=== PATIENT | male | born 1940 | race Asian ===

== ENCOUNTER 2020-05-16 12:39 | Outpatient (REF) | payer MEDICAID, SELFPAY ==
--- NOTE | 2020-05-16 12:48 | XR_ITS ---
EXAMINATION: XR SHOULDER, LEFT CLINICAL INFORMATION: Left shoulder pain COMPARISON: None TECHNIQUE: AP external rotation, Grashey, scapular Y, and axillary views of the left shoulder. FINDINGS: No fracture or dislocation. The glenohumeral joint is well aligned. The joint space is maintained. The acromioclavicular joint is intact. The visualized ribs are intact. The visualized lung is clear. IMPRESSION: Normal appearance of the left shoulder.
== END 2020-05-16 12:40 | disposition home or self-care (01) ==
LOC: HO.XRAY 12:39
PROVIDERS: PCP Student in an Organized Health Care Education/Training Program; Visit Provider Student in an Organized Health Care Education/Training Program
DX: M25.512 Pain in left shoulder (principal)
CPT/HCPCS: 73030

== ENCOUNTER → 2020-08-09 15:14 | Outpatient (BNVA) | payer MEDICAID, SELFPAY | PROVIDERS: PCP Student in an Organized Health Care Education/Training Program; Referring Provider Student in an Organized Health Care Education/Training Program; Visit Provider Student in an Organized Health Care Education/Training Program | DX: Z76.89 Persons encountering health services in other specified circumstances (principal) ==

== ENCOUNTER → 2020-08-28 09:09 | Outpatient (BNVA) | payer MEDICAID, SELFPAY | PROVIDERS: PCP Student in an Organized Health Care Education/Training Program; Visit Provider Internal Medicine | DX: Z76.89 Persons encountering health services in other specified circumstances (principal) ==

== ENCOUNTER → 2020-08-30 07:45 | Outpatient (REF) | payer MEDICAID, SELFPAY ==
--- NOTE | 2020-08-30 07:49 | CA_ITS ---
Transthoracic Echocardiogram Patient (Last, First, Middle): Carina Mcnulty, Gender: Male Date of : 1940 Age: 80 Procedure Date: 08/30/2020 Procedure Type: Transthoracic Echocardiogram Location: OP Height: 170.18 cm Weight: 89.81 kg BSA: 2.01 m2 Heart Rate: bpm BP: 140 / 60 mmHg Principle Software Engineer: [email or web address] Referring MD: Musa Araujo MD Symptoms: I35.1 - Nonrheumatic aortic (valve) insufficiency Conclusions: - Normal left ventricular size and systolic function. - Abnormal diastolic function is noted. - E/E prime ratio is between 8 and 15 consistent with indeterminate filling pressures. - Normal right ventricular cavity size and systolic function. - There is moderate aortic valve regurgitation. Findings Left Ventricle Normal left ventricular size and systolic function. There is mildly increased left ventricular wall thickness. The visually estimated ejection fraction is between 55-60%. There is no evidence of regional wall motion abnormalities. Abnormal diastolic function is noted. Spectral Doppler is indicative of an impaired relaxation filling pattern. E/E prime ratio is between 8 and 15 consistent with indeterminate filling pressures. Right Ventricle Normal right ventricular cavity size and systolic function. Atria Both atria are normal in size. Aortic Valve There is mild calcification of the aortic valve. There is mild thickening of the aortic valve. There is no aortic valve stenosis. There is moderate aortic valve regurgitation. Mitral Valve Normal mitral valve structure and function. There is mild mitral valve regurgitation. There is no mitral valve stenosis. Pulmonic Valve Normal pulmonic valve structure and function. Tricuspid Valve Normal tricuspid valve structure and function. There is trace tricuspid valve regurgitation. Indeterminate right atrial pressure. PASP = 23 mm Hg + right atrial pressure. Great Vessels All visible segments of the aorta are normal in size. The visualized portions of the pulmonary artery and branches are normal. Venous The inferior vena cava was not well visualized. Pericardium/Pleural There is no evidence of pericardial effusion. Prior Study Comparison Changes noted compared to prior study dated: 10/03/2019. LV size is larger compared to previous study but still within normal limits. Moderate AI present. Measurements M-Mode Liner Measurements Normals - Women/Men LVIDd: 4.94 3.9-5.3/4.2-5.9 cm LVIDd Index: 2.46 1.9-3.2 cm/m2 LVIDs: 3.57 2.0-3.8 cm M-Mode Volumes LV EDV: 115.00 LV ESV: 53.30 2D Linear Measurements IVSd: 1.14 0.6-0.9/0.6-1.0 cm LVIDd: 5.90 3.9-5.3/4.2-5.9 cm LVIDd Index: 2.94 2.4-3.2/2.2-3.1 cm/m2 LVIDs: 4.17 2.0-3.6 cm LVPWd: 1.24 0.7-1.1 cm Ao Root: 3.10 2.1-3.5 cm LA Diam: 3.90 2.7-3.8/3.0-4.0 cm LAIDs Index: 1.94 1.5-2.3 cm/m2 LV Mass: 376.78 67-162/88-224 g LV Mass Index: 187.45 43-95/49-115 g/m2 LVOT Diam: 2.00 3.0+(-)1.3 cm 2D Systolic Function EF 4C: 58.00 >55% M-Mode Systolic Function FS: 27.70 27-47/25-43% LVEF: 53.70 >55% Mitral Valve MV Pk E: 0.74 MV PK A: 1.08 MV Decel Time: 211.00 E/A: 0.70 E'Lateral: 10.10 E'Medial: 5.71 E/E' Med: 13.00 E/E' Lat: 7.30 PHT: 62.00 MVA PHT: 3.55 Decel [place]: 3.51 Aortic Valve AoV Pk Abiodun: 2.04 AoV Pk Grad: 17.00 AI Pk Abiodun: 3.60 AI [place]: 2.40 LVOT LVOT Pk Abiodun: 1.34 LVOT Mn Abiodun: 0.92 LVOT VTI: 0.35 LVOT Pk Grad: 7.00 LVOT Mn Grad: 4.00 LVOT Diam: 2.00 LVOT Area: 3.14 Diastolic Function MV Pk E: 0.74 MV Pk A: 1.08 E/A: 0.70 E'Medial: 5.71 E/E' Med: 13.00 E' Laterial: 10.10 E/E' Lat: 7.30 Tricuspid Valve TR Pk Abioudn: 2.37 TR Pk Grad: 22.00 RA Press: 3.00 RVSP: 23.00 Great Vessels Aorta Ao Root-2D: 3.10 2.0-3.7 cm Ao Asc: 3.40 2.1-3.4 cm Updated in Other Vendor System with Status of Final Mohinder Bernal MD electronically signed on 08/31/2020 12:45:29 PM with status of Final
== END ==
LOC: HO.CARD 07:45
PROVIDERS: Visit Provider Internal Medicine
DX: I35.1 Nonrheumatic aortic (valve) insufficiency (principal)
CPT/HCPCS: 93005; 93306; 99212

== ENCOUNTER → 2020-11-13 14:27 | Outpatient (BNVA) | payer MEDICAID, SELFPAY | PROVIDERS: PCP Student in an Organized Health Care Education/Training Program; Visit Provider Urology | DX: N40.1 Benign prostatic hyperplasia with lower urinary tract symptoms (principal); N13.8 Other obstructive and reflux uropathy; R39.15 Urgency of urination; N35.919 Unspecified urethral stricture, male, unspecified site | CPT/HCPCS: 99212 ==

== ENCOUNTER → 2021-05-16 14:51 | Outpatient (BNVA) | payer MEDICAID, SELFPAY | PROVIDERS: PCP Student in an Organized Health Care Education/Training Program; Visit Provider Urology | DX: N40.1 Benign prostatic hyperplasia with lower urinary tract symptoms (principal); N13.8 Other obstructive and reflux uropathy | CPT/HCPCS: 51798; 99212 ==

== ENCOUNTER → 2021-06-20 14:01 | Outpatient (BNVA) | payer MEDICAID, SELFPAY | PROVIDERS: Visit Provider Urology | DX: N35.919 Unspecified urethral stricture, male, unspecified site (principal); N40.1 Benign prostatic hyperplasia with lower urinary tract symptoms; R97.20 Elevated prostate specific antigen [PSA]; R39.12 Poor urinary stream; N31.8 Other neuromuscular dysfunction of bladder; R39.15 Urgency of urination | CPT/HCPCS: 52000; 99212 ==

== ENCOUNTER 2021-07-18 11:14 | Outpatient (REF) | payer MEDICAID, SELFPAY ==
--- NOTE | 2021-07-18 11:33 | ECG_ITS ---
Test Reason : PREOP Blood Pressure : / mmHG Vent. Rate : 060 BPM Atrial Rate : 060 BPM P-R Int : 204 ms QRS Dur : 096 ms QT Int : 400 ms P-R-T Axes : 009 -07 057 degrees QTc Int : 400 ms Normal sinus rhythm Nonspecific T wave abnormality Abnormal ECG When compared with ECG of 22-NOV-2016 20:25, Vent. rate has decreased BY 38 BPM Nonspecific T wave abnormality has replaced inverted T waves in Inferior leads QT has shortened Referred By: Claire Sellers Electronically Signed By:CORBY SINCLAIR MD
[2021-07-25 15:00] LABS: Levetiracetam Keppra 11.4 mcg/mL (12.0-46.0)
== END 2021-07-18 11:15 | disposition home or self-care (01) ==
LOC: HO.LAB 11:14
PROVIDERS: Absent Provider Student in an Organized Health Care Education/Training Program; PCP Student in an Organized Health Care Education/Training Program; Visit Provider Family Medicine
DX: Z01.818 Encounter for other preprocedural examination (principal)
CPT/HCPCS: 36415; 80177; 93005

== ENCOUNTER 2021-09-27 10:31 | Outpatient (REF) | payer MEDICAID, SELFPAY ==
[2021-09-27 13:12] LABS: PSA,Total (Free>4and<10) 3.47 ng/mL (0.00-4.00)
== END 2021-09-27 10:32 | disposition home or self-care (01) ==
LOC: HO.LAB 10:31
PROVIDERS: PCP Student in an Organized Health Care Education/Training Program; Visit Provider Urology
DX: Z12.5 Encounter for screening for malignant neoplasm of prostate (principal); N13.8 Other obstructive and reflux uropathy; N40.1 Benign prostatic hyperplasia with lower urinary tract symptoms
CPT/HCPCS: 36415; 84153

== ENCOUNTER → 2021-10-14 14:27 | Outpatient (BNVA) | payer MEDICAID, SELFPAY | PROVIDERS: PCP Student in an Organized Health Care Education/Training Program; Visit Provider Internal Medicine | DX: I25.10 Atherosclerotic heart disease of native coronary artery without angina pectoris (principal); I35.1 Nonrheumatic aortic (valve) insufficiency; I10 Essential (primary) hypertension; Z86.73 Personal history of transient ischemic attack (TIA), and cerebral infarction without residual deficits | CPT/HCPCS: 93005; 99212 ==

== ENCOUNTER → 2021-10-23 09:51 | Outpatient (BNVA) | payer MEDICAID, SELFPAY | PROVIDERS: PCP Student in an Organized Health Care Education/Training Program; Visit Provider Urology | DX: N40.1 Benign prostatic hyperplasia with lower urinary tract symptoms (principal); R97.20 Elevated prostate specific antigen [PSA]; N35.919 Unspecified urethral stricture, male, unspecified site; N13.8 Other obstructive and reflux uropathy; R33.8 Other retention of urine | CPT/HCPCS: Q3014 ==

== ENCOUNTER 2022-04-21 10:32 | Outpatient (REF) | payer MEDICAID, SELFPAY ==
[2022-04-21 13:18] LABS: PSA,Total (Free>4and<10) 2.95 ng/mL (0.00-4.00)
== END 2022-04-21 10:33 | disposition home or self-care (01) ==
LOC: HO.LAB 10:32
PROVIDERS: PCP Student in an Organized Health Care Education/Training Program; Visit Provider Urology
DX: Z12.5 Encounter for screening for malignant neoplasm of prostate (principal); N13.8 Other obstructive and reflux uropathy; N40.1 Benign prostatic hyperplasia with lower urinary tract symptoms
CPT/HCPCS: 36415; 84153

== ENCOUNTER → 2022-04-28 09:30 | Outpatient (BNVA) | payer MEDICAID, SELFPAY | PROVIDERS: PCP Student in an Organized Health Care Education/Training Program; Visit Provider Urology | DX: R97.20 Elevated prostate specific antigen [PSA] (principal); N40.1 Benign prostatic hyperplasia with lower urinary tract symptoms; N13.8 Other obstructive and reflux uropathy; R33.8 Other retention of urine; N35.919 Unspecified urethral stricture, male, unspecified site | CPT/HCPCS: 51798; 99212 ==

== ENCOUNTER 2022-05-07 13:16 | Outpatient (REF) | payer MEDICAID, SELFPAY ==
[2022-05-07 14:36] LABS: Basophils Absolute Auto 0.1 X10*3/uL (0.0-0.2); Basophils Percent Auto 1.2 % (0-2); Eosinophils Absolute Auto 1.7 X10*3/uL (0.0-0.4); Eosinophils Percent Auto 21.2 % (0-4); Hematocrit 39.5 % (42.0-52.0); Hemoglobin 13.8 g/dl (14.0-18.0); Imm Gran Abs Auto 0.02 X10*3/uL (0.00-0.03); Imm Gran Pct Auto 0.2 % (0.0-0.4); Lymphocytes Absolute Auto 2.7 X10*3/uL (1.2-4.9); Lymphocytes Percent Auto 33.8 % (20-40); MANUAL DIFF FLAG SCAN; Mean Corpuscular HGB Conc 34.9 g/dl (31.0-36.0); Mean Corpuscular Hemoglobin 32.9 pg (27.0-33.0); Mean Corpuscular Volume 94.3 fL (80.0-98.0); Mean Platelet Volume 10.9 fL (9.4-12.4); Monocytes Absolute Auto 0.6 X10*3/uL (0.1-1.2); Monocytes Percent Auto 7.4 % (2-11); Neutrophils Absolute Auto 2.9 x10*3/uL (2.0-8.3); Neutrophils Percent Auto 36.2 % (45-73); Platelet Count 188 X10*3/uL (160-400); Red Blood Count 4.19 X10*6/uL (4.60-5.80); SCAN SMEAR FLAG 1
[2022-05-07 14:58] LABS: SLIDE REVIEW VERIFIED
[2022-05-07 15:09] LABS: Alanine Aminotransferase 21 U/L (0-40); Albumin Level 4.1 g/dL (3.5-5.0); Alkaline Phosphatase 108 U/L (39-117); Anion Gap 14 (12-20); Aspartate Amino Transferase 19 U/L (5-37); Bilirubin Total 1.2 mg/dL (0.0-1.0); Blood Urea Nitrogen 13 mg/dL (9-16); Calcium 8.8 mg/dL (8.4-10.2); Carbon Dioxide 25 mmol/L (22-29); Chloride 107 mmol/L (96-108); Estimated Glomerular Filt Rate > 60; Glucose Random 94 mg/dL (60-115); Potassium 4.3 mmol/L (3.3-5.1); Sodium 142 mmol/L (135-145); Total Protein 6.2 g/dL (6.5-8.0); Uric Acid 5.9 mg/dL (3.4-7.0)
== END 2022-05-07 13:17 | disposition home or self-care (01) ==
LOC: HO.LAB 13:16
PROVIDERS: PCP Student in an Organized Health Care Education/Training Program; Visit Provider Student in an Organized Health Care Education/Training Program
DX: M10.9 Gout, unspecified (principal)
CPT/HCPCS: 36415; 80053; 84550; 85025; 99212

== ENCOUNTER → 2022-10-01 13:55 | Outpatient (REF) | payer MEDICARE, MEDICAID, SELFPAY ==
--- NOTE | 2022-10-01 13:57 | CA_ITS ---
Transthoracic Echocardiogram Patient (Last, First, Middle): Carina Mcnulty, Gender: Male Date of : 1940 Age: 82 Procedure Date: 10/01/2022 Procedure Type: Transthoracic Echocardiogram Location: OP Height: 165.1 cm Weight: 99.79 kg BSA: 2.06 m2 Heart Rate: bpm BP: 136 / 72 mmHg Management Advisor: ROBERT Referring MD: Musa Araujo MD Concrete Gun Operator: Db Messina MD Symptoms: I35.1 - Nonrheumatic aortic (valve) insufficiency Study Quality: Fair ECG Rhythm: Atrial Fibrillation Conclusions: - 1. Normal LV systolic function 2. Mildly dilated left atrium 3. Mild aortic regurgitation 4. Normal RV systolic pressure 5. Mildly dilated ascending aorta at 3.9 cm 6. Small pericardial effusion Findings Left Ventricle Normal left ventricular size, thickness, and systolic function. The visually estimated ejection fraction is between 55-60%. Diastolic function is indeterminate on the basis of available data. Right Ventricle Normal right ventricular cavity size. There is mild to moderately decreased right ventricular systolic function. Atria The left atrium is mildly dilated. Interatrial shunt cannot be excluded. The right atrium was not well visualized. Aortic Valve The aortic valve was not well visualized. There is a normal trileaflet aortic valve. There is mild calcification of the aortic valve. There is no aortic valve stenosis. There is mild aortic valve regurgitation. Mitral Valve There is mild anterior and posterior mitral leaflet thickening. There is trace mitral valve regurgitation. There is no mitral valve stenosis. Pulmonic Valve The pulmonic valve was not well visualized. Tricuspid Valve Likely normal tricuspid valve structure and function. There is mild tricuspid valve regurgitation. The right ventricular systolic pressure is normal. The right ventricular systolic pressure is 24 mmHg. Normal right atrial pressure. There is no evidence of pulmonary hypertension. Great Vessels The pulmonary artery was not well visualized. There is mild dilatation of the ascending aorta. Venous The inferior vena cava is normal in size and collapses greater than 50% with inspiration. Pericardium/Pleural There is a small circumferential pericardial effusion. Prior Study Comparison Changes noted compared to prior study dated: 08/30/2020. Aortic regurgitation appears to be mild on this study Measurements 2D Linear Measurements IVSd: 1.01 0.6-0.9/0.6-1.0 cm LVIDd: 5.61 3.9-5.3/4.2-5.9 cm LVIDd Index: 2.72 2.4-3.2/2.2-3.1 cm/m2 LVIDs: 3.60 2.0-3.6 cm LVPWd: 0.91 0.7-1.1 cm LA Diam: 5.00 2.7-3.8/3.0-4.0 cm LAIDs Index: 2.43 1.5-2.3 cm/m2 LV Mass: 259.71 67-162/88-224 g LV Mass Index: 126.07 43-95/49-115 g/m2 LVOT Diam: 2.40 3.0+(-)1.3 cm 2D Systolic Function EF 4C: 58.20 >55% EF 2C: 46.70 >55% Mitral Valve MV Pk E: 0.98 Aortic Valve AoV Pk Abiodun: 1.82 AoV Mn Abiodun: 1.30 AoV VTI: 0.42 AoV Pk Grad: 13.00 Aov Mn Grad: 8.00 ISIDRO Cont.VTI: 2.66 AI Pk Abiodun: 3.35 AI VTI: 1.64 AI Maverick: 2.41 AI Alias Abiodun: 0.39 AI RV - PISA: 43.00 ERO - PISA: 26.00 LVOT LVOT Pk Abiodun: 1.17 LVOT Mn Abiodun: 0.78 LVOT VTI: 0.25 LVOT Pk Grad: 5.00 LVOT Mn Grad: 3.00 LVOT Diam: 2.40 LVOT Area: 4.52 Diastolic Function MV Pk E: 0.98 Right Ventricle TAPSE (mm): 14.60 TVS' Abiodun: 8.39 Tricuspid Valve TR Pk Abiodun: 2.29 TR Pk Grad: 21.00 RA Press: 3.00 RVSP: 24.00 Great Vessels Aorta Sinus of Valsalva: 3.60 2.0-3.5 cm Ao Asc: 3.90 2.1-3.4 cm Pulmonary Veins Pulm Vein S/D 1.60 Pulmonary Valve PV Pk Abiodun: 0.83 Peak PV Grad: 3.00 Updated in Other Vendor System with Status of Final Db Messina MD electronically signed on 10/02/2022 2:38:47 PM with status of Final
== END ==
LOC: HO.CARD 13:55
PROVIDERS: PCP Family Medicine; Visit Provider Internal Medicine
DX: I35.1 Nonrheumatic aortic (valve) insufficiency (principal)
CPT/HCPCS: 93306

== ENCOUNTER 2022-10-20 15:09 | Outpatient (REF) | payer MEDICAID, SELFPAY ==
[2022-10-20 17:14] LABS: PSA,Total (Free>4and<10) 3.45 ng/mL (0.00-4.00)
== END 2022-10-20 15:10 | disposition home or self-care (01) ==
LOC: HO.LAB 15:09
PROVIDERS: PCP Student in an Organized Health Care Education/Training Program; Visit Provider Urology
DX: R97.20 Elevated prostate specific antigen [PSA] (principal); Z12.5 Encounter for screening for malignant neoplasm of prostate
CPT/HCPCS: 36415; 84153

== ENCOUNTER → 2022-10-27 13:07 | Outpatient (BNVA) | payer MEDICAID, SELFPAY | PROVIDERS: PCP Student in an Organized Health Care Education/Training Program; Visit Provider Urology ==

== ENCOUNTER → 2022-11-05 12:57 | Outpatient (BNVA) | payer MEDICARE, MEDICAID, SELFPAY | PROVIDERS: PCP Student in an Organized Health Care Education/Training Program; Visit Provider Student in an Organized Health Care Education/Training Program | DX: M1A.09X0 Idiopathic chronic gout, multiple sites, without tophus (tophi) (principal) | CPT/HCPCS: 99212 ==

== ENCOUNTER → 2022-12-03 12:30 | Outpatient (BNVA) | payer MEDICARE, MEDICAID, SELFPAY | PROVIDERS: PCP Student in an Organized Health Care Education/Training Program; Referring Provider Student in an Organized Health Care Education/Training Program; Visit Provider Internal Medicine | DX: I48.91 Unspecified atrial fibrillation (principal); I25.10 Atherosclerotic heart disease of native coronary artery without angina pectoris; I35.1 Nonrheumatic aortic (valve) insufficiency; I10 Essential (primary) hypertension | CPT/HCPCS: 93005; 99212 ==

== ENCOUNTER → 2022-12-17 10:10 | Outpatient (REF) | payer MEDICARE, MEDICAID, SELFPAY ==
--- NOTE | 2022-12-17 10:13 | HM_ITS ---
* Total monitoring time 3 days. * Underlying rhythm is atrial fibrillation. Average ventricular rate 66/Min. Range 45 to 101/Min. * No significant pauses. * Rare PVCs. One run of 4 beats. * No patient markers or events in diary. MTDD
== END ==
LOC: HO.CARD 10:10
PROVIDERS: PCP Student in an Organized Health Care Education/Training Program; Visit Provider Internal Medicine
DX: I48.91 Unspecified atrial fibrillation (principal)
CPT/HCPCS: 93242

== ENCOUNTER 2023-04-27 14:55 | Outpatient (AMB) | payer MEDICARE, MEDICAID, SELFPAY ==
--- NOTE | 2023-04-27 15:14 | A.OFFVIS_ITS ---
Intake Intake Visit Reasons: 6m/PVR Intake Note: Patient is Present for Follow Up PVR Urology Medication: Finasteride, Tamsulosin Antibiotic Allergies: None Blood Thinners: Eliquis, Pharmacy: [facility] PVR: Allergies levetiracetam [Keppra] Allergy (Intermediate, Verified 04/27/23 15:20) rash bell [CHERRIES] Allergy (Unknown, Verified 04/27/23 15:20) RASH phenytoin [From DILANTIN] Allergy (Unknown, Verified 04/27/23 15:20) HIVES strawberry [STRAWBERRY] Allergy (Unknown, Verified 04/27/23 15:20) RASH HPI HPI Comments History of Present Illness Details Carina is a pleasant male. He is a patient of Dr. Lyn. He is seen for the following urologic conditions - urethral stricture - lower urinary tract symptoms PVR 0 cc Stable voiding parameters Has stopped using catheter Off oxybutynin 12 month follow-up Lower urinary tract symptoms Nocturia 2-3 Prior history of distal urethral stricture which has been dilated by patient with intermittent self catheterization. TURP 2014 PSA 01/19 11, 09/23 3.5, 04/23 3.0 Cystoscopy 06/22 prior TURP Current medications tamsulosin and finasteride PFSH Medical History Ischemic stroke Essential hypertension Atherosclerotic cardiovascular disease Non-rheumatic aortic regurgitation Gout Surgical History History of total right knee replacement Family History Father No problems noted. Mother No problems noted. Social History Alcohol intake: never Patient Tobacco Use Status: Never used Tobacco Review of Systems Const Denies chills and Denies fever(s) Card Reports no additional complaints and Denies syncope Resp Denies cough GI Denies abdominal pain and Denies heartburn Reports as per HPI and Denies change in libido Neuro Denies syncope Psych Denies change in libido Endo Denies change in libido Physical Exam Const General: cooperative, healthy appearing, comfortable and no acute distress Orientation/consciousness: patient oriented x3 HEENT Face and sinus: Yes normal facial exam Mouth: moist mucous membranes Neck Neck: Yes normal visual inspection, Yes full ROM and Yes trachea midline Chest Chest palpation & inspection: normal inspection of the chest Resp Effort & Inspection: normal respiratory effort, able to speak in complete sentences and no respiratory distress GI Inspection: Yes normal to inspection Back/Spine/Pelvis Cervical Spine: normal cervical lordosis Thoracic/Lumbar Spine: thoracic and lumbar spine normal to inspection Skin General skin exam: no rashes or lesions noted Neuro General: patient oriented x3, gait normal, tone normal and moves all extremities Extrem General: Yes normal to inspection and Yes capillary refill normal Assessment & Plan Assessment & Plan (1) Elevated PSA: Code(s): R97.20 - Elevated prostate specific antigen [PSA] (2) Urinary urgency: Code(s): R39.15 - Urgency of urination (3) BPH w urinary obs/LUTS: Code(s): N40.1 - Benign prostatic hyperplasia with lower urinary tract symptoms; N13.8 - Other obstructive and reflux uropathy Plan Twelve month follow-up Orders: Orders AMB Urinalysis Automated 04/27/23 Z13.9 - Encounter for screening, unspecified AMB Post Void Residual by ultrasound 04/27/23 N13.8 - Other obstructive and ref lux uropathy, N40.1 - Benign prostatic hyperplasia with lower urinary tract symptoms Patient Instructions: Imaging studies, laboratory and physical exam results were discussed and reviewed in detail. No major barriers to patient understanding were identified. An opportunity to ask questions regarding the treatment plan was provided. All questions were answered. The patient expressed understanding and agreement with the above treatment plan. The patient is aware they should contact our office by phone for worsening of their current condition or the appearance of new urologic symptoms. Compliance is encouraged with any medications and followup testing that is ordered. It is a privilege to participate in the urologic care of your patient. If you have any questions or concerns regarding treatment for the above conditions, or other urologic issues, please do not hesitate to contact me. The office telephone contact is [phone]. This note is constructed using voice recognition software. While every effort has been made to ensure accuracy crown perforator operator errors may have been included. Yours sincerely, Dr Stephane Bryan MD, [facility] - Urology Providers of Expert, Compassionate Care for the Genitourinary System Coding Level of Care Code Est Pt Level 3 (02391) Diagnoses Elevated PSA R97.20 Urinary urgency R39.15 BPH w urinary obs/LUTS N40.1; N13.8
== END 2023-04-27 15:47 | disposition home or self-care (01) ==
PROVIDERS: PCP Student in an Organized Health Care Education/Training Program; Visit Provider Urology
DX: R97.20 Elevated prostate specific antigen [PSA] (principal); N40.1 Benign prostatic hyperplasia with lower urinary tract symptoms; R39.15 Urgency of urination; N13.8 Other obstructive and reflux uropathy
CPT/HCPCS: 99213

== ENCOUNTER → 2023-04-27 14:55 | Outpatient (BNVA) | payer MEDICARE, MEDICAID, SELFPAY | PROVIDERS: Visit Provider Urology | DX: N40.1 Benign prostatic hyperplasia with lower urinary tract symptoms (principal); N13.8 Other obstructive and reflux uropathy; R97.20 Elevated prostate specific antigen [PSA]; R39.15 Urgency of urination | CPT/HCPCS: 99212 ==

== ENCOUNTER 2023-05-14 13:01 | Outpatient (AMB) | payer MEDICARE, MEDICAID, SELFPAY ==
--- NOTE | 2023-05-14 13:08 | A.OFFVIS_ITS ---
Intake Vital Signs 05/14/23 13:09 Height 5 ft 7 in Weight 215 lb 9.793 oz BMI 33.8 BP 160/72 H Blood Pressure Location Rt brachial Position Sitting Pulse 75 Pulse Source Pulse Oximeter Temp 97.9 F Temp Source Skin Pulse Oximetry (%) 96 Intake Visit Reasons: Gout Intake Note: Pt presents today for gout follow up. Currently managing with allopurinol 100mg bid. Denies flare up. Small Products Assembler Required: No Accompanied by: Daughter Allergies levetiracetam [Keppra] Allergy (Intermediate, Verified 05/14/23 13:15) rash bell [CHERRIES] Allergy (Unknown, Verified 05/14/23 13:15) RASH phenytoin [From DILANTIN] Allergy (Unknown, Verified 05/14/23 13:15) HIVES strawberry [STRAWBERRY] Allergy (Unknown, Verified 05/14/23 13:15) RASH Medication List - Last Reconciled 05/14/23 by Herbert Keita MD allopurinol 100 mg PO BID amlodipine 10 mg PO DAILY apixaban (Eliquis) 5 mg PO BID 90 days atorvastatin (Lipitor) 40 mg PO DAILY cyanocobalamin (vitamin B-12) 1,000 mcg PO DAILY finasteride 5 mg PO DAILY 90 days levetiracetam 750 mg PO BID loratadine 10 mg PO DAILY metoprolol succinate ER 100 mg PO DAILY tamsulosin (Flomax) 0.4 mg PO DAILY 90 days HPI HPI Comments History of Present Illness Details 83 yoM presents for follow-up of gout. Anamaria lucio is here with his daughter who is his artificial glass eye maker. He is doing well overall with no gout flares since last visit. On allopurinol 100 mg Twice daily [facility] Medical History Ischemic stroke Essential hypertension Atherosclerotic cardiovascular disease Non-rheumatic aortic regurgitation Gout Surgical History History of total right knee replacement Family History Father No problems noted. Mother No problems noted. Social History Alcohol intake: never Patient Tobacco Use Status: Never used Tobacco Review of Systems [facility] Denies arthralgias Physical Exam Vital Signs: Last Vital Signs Temp 97.9 F 05/14/23 13:09 Pulse 75 05/14/23 13:09 BP 160/72 H 05/14/23 13:09 Pulse Ox 96 05/14/23 13:09 BMI result Body Mass Index 33.8 Const General: healthy appearing, comfortable and no acute distress Nutritional Appearance: obese (Obese) Limitations: ambulation with cane HEENT Head: Yes normocephalic and Yes atraumatic Resp Effort & Inspection: normal respiratory effort Skin General skin exam: no rashes or lesions noted Extrem Other: Some osteoarthritic changes of his hands with no synovitis No tophi noted Assessment & Plan Assessment & Plan (1) Gout: Code(s): M10.9 - Gout, unspecified Qualifiers: Gout site: multiple sites Gout etiology: idiopathic Chronicity: chronic Presence of tophus: without tophus Qualified Code(s): M1A.09X0 - Idiopathic chronic gout, multiple sites, without tophus (tophi) Plan: This is an 83-year-old male with gout.? He is on allopurinol 100 mg Twice daily.? His gout is well controlled.? Serum uric acid was 5.9 in 05/23 which is at target Continue allopurinol 100 mg Twice daily.? Check uric acid level. Continue allopurinol 100 mg Twice daily Follow-up in 6 months Plan I spent 18 minutes reviewing patient's chart, evaluating patient, ordering diagnostic workup, counseling patient and documenting in the chart Orders: Orders Basic Metabolic Panel Today M10.9 - Gout, unspecified Uric Acid Today M10.9 - Gout, unspecified Complete Blood Count Auto Diff Today M10.9 - Gout, unspecified Coding Level of Care Code Est Pt Level 3 (69799) Diagnoses Idiopathic chronic gout of multiple sites without tophus M1A.09X0 Gout site: multiple sites Gout etiology: idiopathic Chronicity: chronic Presence of tophus: without tophus
[2023-05-14 13:09] VITALS: BP 160/72; PULSE 75; TEMP 36.6; O2SAT 96; BMI 33.8
== END 2023-05-14 13:32 | disposition home or self-care (01) ==
PROVIDERS: PCP Student in an Organized Health Care Education/Training Program; Referring Provider Student in an Organized Health Care Education/Training Program; Visit Provider Student in an Organized Health Care Education/Training Program
DX: M1A.09X0 Idiopathic chronic gout, multiple sites, without tophus (tophi) (principal)
CPT/HCPCS: 99213

== ENCOUNTER → 2023-05-14 13:01 | Outpatient (BNVA) | payer MEDICARE, MEDICAID, SELFPAY | PROVIDERS: Visit Provider Student in an Organized Health Care Education/Training Program | DX: M1A.09X0 Idiopathic chronic gout, multiple sites, without tophus (tophi) (principal) | CPT/HCPCS: 99212 ==

== ENCOUNTER 2023-11-05 14:23 | Outpatient (REF) | payer MEDICARE, MEDICAID, SELFPAY ==
[2023-11-05 16:29] LABS: MANUAL DIFF FLAG NO
[2023-11-05 16:36] LABS: Basophils Absolute Auto 0.1 X10*3/uL (0.0-0.2); Eosinophils Absolute Auto 1.6 X10*3/uL (0.0-0.4); Eosinophils Percent Auto 19.2 % (0-4); Hematocrit 41.3 % (42.0-52.0); Hemoglobin 14.3 g/dl (14.0-18.0); Imm Gran Abs Auto 0.02 X10*3/uL (0.00-0.03); Imm Gran Pct Auto 0.2 % (0.0-0.4); Lymphocytes Absolute Auto 2.9 X10*3/uL (1.2-4.9); Mean Corpuscular HGB Conc 34.6 g/dl (31.0-36.0); Mean Corpuscular Hemoglobin 33.3 pg (27.0-33.0); Mean Platelet Volume 11.4 fL (9.4-12.4); Monocytes Absolute Auto 0.6 X10*3/uL (0.1-1.2); Neutrophils Absolute Auto 3.1 x10*3/uL (2.0-8.3); Neutrophils Percent Auto 37.6 % (45-73); Platelet Count 205 X10*3/uL (160-400); Red Cell Distribution Width 13.2 % (11.0-16.0); White Blood Count 8.2 X10*3/uL (4.8-10.8)
[2023-11-05 16:49] LABS: Anion Gap 12 (12-20); Blood Urea Nitrogen 16 mg/dL (9-16); Calcium 9.1 mg/dL (8.4-10.2); Carbon Dioxide 26 mmol/L (22-29); Chloride 111 mmol/L (96-108); Estimated Glomerular Filt Rate > 60; Glucose Random 97 mg/dL (60-115); Potassium 4.4 mmol/L (3.3-5.1); Sodium 145 mmol/L (135-145); Uric Acid 5.6 mg/dL (3.4-7.0)
== END 2023-11-05 14:24 | disposition home or self-care (01) ==
LOC: HO.HMGCLDS 14:23
PROVIDERS: PCP Student in an Organized Health Care Education/Training Program; Visit Provider Student in an Organized Health Care Education/Training Program
DX: M10.9 Gout, unspecified (principal)
CPT/HCPCS: 36415; 80048; 84550; 85025

== ENCOUNTER 2023-11-11 14:04 | Outpatient (AMB) | payer MEDICARE, MEDICAID, SELFPAY ==
[2023-11-11 14:06] VITALS: BP 128/60; PULSE 66; O2SAT 97; BMI 33.6
--- NOTE | 2023-11-11 14:06 | MHC.OFFVIS ---
Intake Vital Signs 11/11/23 14:06 Height 5 ft 7 in Weight 214 lb 8.156 oz BMI 33.6 BP 128/60 Blood Pressure Location Rt brachial Position Sitting Pulse 66 Pulse Source Pulse Oximeter Pulse Oximetry (%) 97 Oxygen Delivery Method Room Air Intake Visit Reasons: Gout Intake Note: Patient last seen 05/14/23 presents today for follow up and test results. Telegraph Office Manager Required: Yes Telegraph Office Manager Name: Daughter Sithar - form signed Information Interpreted: non-clinical & clinical Accompanied by: Daughter Allergies bell [CHERRIES] Allergy (Unknown, Verified 11/11/23 14:17) RASH phenytoin [From DILANTIN] Allergy (Unknown, Verified 11/11/23 14:17) HIVES strawberry [STRAWBERRY] Allergy (Unknown, Verified 11/11/23 14:17) RASH Medication List - Last Reconciled 11/11/23 by Herbert Keita MD allopurinol 100 mg PO BID amlodipine 10 mg PO DAILY apixaban (Eliquis) 5 mg PO BID 90 days atorvastatin (Lipitor) 40 mg PO DAILY cyanocobalamin (vitamin B-12) 1,000 mcg PO DAILY finasteride 5 mg PO DAILY 90 days levetiracetam 750 mg PO BID loratadine 10 mg PO DAILY metoprolol succinate ER 100 mg PO DAILY tamsulosin (Flomax) 0.4 mg PO DAILY 90 days HPI HPI Comments History of Present Illness Details 83 yoM presents for follow-up of gout. He is here with his daughter who is his almond pan finisher. He is doing well overall with no gout flares since last visit. On allopurinol 100 mg Twice daily [facility] Medical History Ischemic stroke Essential hypertension Atherosclerotic cardiovascular disease Non-rheumatic aortic regurgitation Gout Surgical History History of total right knee replacement Family History Father No problems noted. Mother No problems noted. Social History Alcohol intake: never Patient Tobacco Use Status: Never used Tobacco Review of Systems [place] Denies arthralgias Physical Exam Vital Signs: Last Vital Signs Pulse 66 11/11/23 14:06 BP 128/60 11/11/23 14:06 Pulse Ox 97 11/11/23 14:06 Oxygen Delivery Method Room Air 11/11/23 14:06 BMI result Body Mass Index 33.6 Const General: healthy appearing, comfortable and no acute distress Nutritional Appearance: obese (Obese) Limitations: ambulation with cane HEENT Head: Yes normocephalic and Yes atraumatic Resp Effort & Inspection: normal respiratory effort Skin General skin exam: no rashes or lesions noted Extrem Other: Some osteoarthritic changes of his hands with no synovitis No tophi noted Assessment & Plan Assessment & Plan (1) Gout: Code(s): M10.9 - Gout, unspecified Qualifiers: Gout site: multiple sites Gout etiology: idiopathic Chronicity: chronic Presence of tophus: without tophus Qualified Code(s): M1A.09X0 - Idiopathic chronic gout, multiple sites, without tophus (tophi) Plan: This is an 83-year-old male with gout.? He is on allopurinol 100 mg Twice daily.? His gout is well controlled.? Serum uric acid 5.7 mg/dL 10/2022 which is at target. Continue allopurinol 100 mg Twice daily. Labs before next visit in 6 months Plan I spent 18 minutes reviewing patient's chart, evaluating patient, ordering diagnostic workup, counseling patient and documenting in the chart Orders: Orders Uric Acid 6 Months M1A.09X0 - Idiopathic chronic gout, multiple sites, without tophus (tophi) Basic Metabolic Panel 6 Months M1A.09X0 - Idiopathic chronic gout, multiple sites, without tophus (tophi) Medications: Refilled allopurinol 100 mg PO BID 180 tabs 2RF Coding Level of Care Code Est Pt Level 3 (19171) Diagnoses Idiopathic chronic gout of multiple sites without tophus M1A.09X0 Gout site: multiple sites Gout etiology: idiopathic Chronicity: chronic Presence of tophus: without tophus
== END 2023-11-11 14:33 | disposition home or self-care (01) ==
PROVIDERS: PCP Student in an Organized Health Care Education/Training Program; Visit Provider Student in an Organized Health Care Education/Training Program
DX: M1A.09X0 Idiopathic chronic gout, multiple sites, without tophus (tophi) (principal)
CPT/HCPCS: 99213

== ENCOUNTER → 2023-11-11 14:04 | Outpatient (BNVA) | payer MEDICARE, MEDICAID, SELFPAY | PROVIDERS: PCP Student in an Organized Health Care Education/Training Program; Visit Provider Student in an Organized Health Care Education/Training Program | DX: M1A.09X0 Idiopathic chronic gout, multiple sites, without tophus (tophi) (principal); Z79.899 Other long term (current) drug therapy | CPT/HCPCS: 99212 ==

== ENCOUNTER 2023-12-09 12:21 | Outpatient (AMB) | payer MEDICARE, MEDICAID, SELFPAY ==
--- NOTE | 2023-12-09 12:29 | MHC.OFFVIS ---
Vital Signs 12/09/23 12:30 Height 5 ft 7 in BMI Reason not done Patient refused/unable BP 140/60 H Blood Pressure Location Lt brachial Position Sitting Pulse 75 Intake Visit Reasons: 1 yr f/up Garment Alteration Examiner Required: Yes Garment Alteration Examiner Name: Sithar/ Daughter Accompanied by: Daughter Allergies bell [CHERRIES] Allergy (Unknown, Verified 11/11/23 14:17) RASH phenytoin [From DILANTIN] Allergy (Unknown, Verified 11/11/23 14:17) HIVES strawberry [STRAWBERRY] Allergy (Unknown, Verified 11/11/23 14:17) RASH Medication List - Last Reconciled 12/09/23 by Musa Araujo MD allopurinol 100 mg PO BID amlodipine 10 mg PO DAILY apixaban (Eliquis) 5 mg PO BID 90 days atorvastatin (Lipitor) 40 mg PO DAILY cyanocobalamin (vitamin B-12) 1,000 mcg PO DAILY finasteride 5 mg PO DAILY 90 days levetiracetam 750 mg PO BID loratadine 10 mg PO DAILY metoprolol succinate ER 100 mg PO DAILY tamsulosin (Flomax) 0.4 mg PO DAILY 90 days HPI Comments Details: Carina returns for follow-up regarding coronary disease. In 2016, had stroke/NSTEMI in setting of elective knee surgery. He comes in a wheelchair accompanied by family. Per family, he does get short of breath with minimal amounts of activity. He also appears to be wheezing a lot. However, no history of any respiratory issues in the past. Not clear if it is just diastolic heart failure. [facility] [place] Medical History Ischemic stroke Essential hypertension Atherosclerotic cardiovascular disease Non-rheumatic aortic regurgitation Gout Surgical History History of total right knee replacement Family History Father No problems noted. Mother No problems noted. Social History Alcohol intake: never Patient Tobacco Use Status: Never used Tobacco Review of Systems Const Denies chills, Denies fatigue, Denies fever(s), Denies frequent falls, Denies weakness, Denies weight gain and Denies weight loss ENT Denies dizziness Card Denies chest pain, Denies leg edema, Denies lightheadedness, Denies palpitations, Denies dyspnea and Denies dyspnea on exertion Resp Denies cough, Denies dyspnea and Denies dyspnea on exertion GI Denies hematochezia Musc Denies abnormal gait, Denies muscle weakness, Denies numbness, Denies radiating pain into limb and Denies tingling Neuro Denies abnormal gait, Denies dizziness, Denies frequent falls, Denies numbness, Denies tingling and Denies weakness Endo Denies fatigue and Denies palpitations Physical Exam Vital Signs: Last Vital Signs Pulse 75 12/09/23 12:30 BP 140/60 H 12/09/23 12:30 Const General: comfortable and no acute distress Orientation/consciousness: patient oriented x3 HEENT Other: Unremarkable Head: Yes normal to inspection Neck Neck: Yes normal visual inspection Chest Chest palpation & inspection: normal inspection of the chest Resp Auscultation: wheezes Cardio Palpation: normal PMI Heart sounds: S1 normal heart sound present, S2 normal heart sound present, no gallops, no murmurs and no rubs GI Palpation (GI): Soft to palpation Back/Spine/Pelvis Other: unremarkable Skin General skin exam: no rashes or lesions noted Neuro General: patient oriented x3 Extrem General: Yes normal to inspection Psych Mental Status: mental status grossly normal Office Procedures EKG Details: EKG with atrial fibrillation at 75/Min; incomplete right bundle-branch block; can not exclude old anterior infarct. [id number], Complete Assessment & Plan Assessment & Plan (1) Atrial fibrillation by electrocardiogram: Code(s): I48.91 - Unspecified atrial fibrillation Category: Medical Plan: Continue beta-blockers and anticoagulation. (2) Atherosclerotic cardiovascular disease: Code(s): I25.10 - Atherosclerotic heart disease of [place] coronary artery without angina pectoris Category: Medical Plan: Presumed coronary disease but no clear-cut angina. Continue beta-blockers, statins. (3) Non-rheumatic aortic regurgitation: Code(s): I35.1 - Nonrheumatic aortic (valve) insufficiency Category: Medical Plan: Mild aortic regurgitation on the echocardiogram. Not clinically significant. (4) Essential hypertension: Code(s): I10 - Essential (primary) hypertension Category: Medical Plan: Stable. No changes. (5) Shortness of breath: Code(s): R06.02 - Shortness of breath Category: Medical Plan: Shortness of breath/wheezing per history. On exam, clearly has wheezing in bilateral lung bardales. Not clear if it is diastolic heart failure versus asthma extra. In the recent chest CT scan from [facility]-heart moderately enlarged. Coronary calcification. Small pericardial effusion. Atelectasis versus scar in the right middle lobe and both lower lobes. Will obtain echo. Try low-dose Lasix. Labs in a few weeks. If not improving, then probably get Pulmonary consult. Orders: Orders CA echo transthoracic complete Today R06.02 - Shortness of breath Basic Metabolic Panel 6 Weeks I10 - Essential (primary) hypertension B Type Natriuretic Peptide 6 Weeks I50.9 - Heart failure, unspecified Medications: New furosemide (Lasix) 20 mg PO DAILY 90 tabs 1RF Coding Level of Care Code Est Pt Level 4 (78041) Diagnoses Atrial fibrillation by electrocardiogram I48.91 Atherosclerotic cardiovascular disease I25.10 Non-rheumatic aortic regurgitation I35.1 Essential hypertension I10 Shortness of breath R06.02 CPT Codes EKG - CPT: 69837-Nqzfneiputspiaeqs, Complete ([id number])
[2023-12-09 12:30] VITALS: BP 140/60; PULSE 75
== END 2023-12-09 12:50 | disposition home or self-care (01) ==
PROVIDERS: Visit Provider Internal Medicine
DX: I48.91 Unspecified atrial fibrillation (principal); I25.10 Atherosclerotic heart disease of native coronary artery without angina pectoris; I35.1 Nonrheumatic aortic (valve) insufficiency; I10 Essential (primary) hypertension; R06.02 Shortness of breath
CPT/HCPCS: 93010; 99214

== ENCOUNTER → 2023-12-09 12:21 | Outpatient (BNVA) | payer MEDICARE, MEDICAID, SELFPAY | PROVIDERS: Visit Provider Internal Medicine | DX: I48.91 Unspecified atrial fibrillation (principal); I25.10 Atherosclerotic heart disease of native coronary artery without angina pectoris; I35.1 Nonrheumatic aortic (valve) insufficiency; I10 Essential (primary) hypertension; R06.02 Shortness of breath | CPT/HCPCS: 93005; 99212 ==

== ENCOUNTER → 2023-12-24 15:05 | Outpatient (REF) | payer MEDICARE, MEDICAID, SELFPAY ==
--- NOTE | 2023-12-24 15:10 | CA_ITS ---
Transthoracic Echocardiogram Patient (Last, First, Middle): Carina Mcnulty, Gender: Male Date of : 1940 Age: 83 Procedure Date: 12/24/2023 Procedure Type: Transthoracic Echocardiogram Location: OP Height: 165.1 cm Weight: 97.52 kg BSA: 2.04 m2 Heart Rate: 74 bpm BP: 138 / 64 mmHg Panel Machine Operator: SB Referring MD: Musa Araujo MD Symptoms: R06.02 - Shortness of breath Study Quality: Adequate ECG Rhythm: Atrial Fibrillation Conclusions: - Normal left ventricular size and systolic function. There is mildly increased left ventricular wall thickness. The visually estimated ejection fraction is between 55-60%. - Normal right ventricular cavity size and systolic function. - There is a small pericardial effusion. - There are no definitive echocardiographic findings of tamponade physiology. Findings Procedure Information The quality of the study was technically difficult. The study quality is limited by patients body habitus. Left Ventricle Normal left ventricular size and systolic function. There is mildly increased left ventricular wall thickness. The visually estimated ejection fraction is between 55-60%. There is no evidence of regional wall motion abnormalities. Diastolic function is indeterminate on the basis of available data. Right Ventricle Normal right ventricular cavity size and systolic function. Atria The left atrium is mildly dilated. Aortic Valve There is mild calcification of the aortic valve. There is no aortic valve stenosis. There is mild aortic valve regurgitation. Mitral Valve The mitral valve appears normal. There is mild mitral valve regurgitation. There is no mitral valve stenosis. Pulmonic Valve The pulmonic valve is likely normal. Tricuspid Valve Normal tricuspid valve structure. There is no tricuspid valve regurgitation. Normal right atrial pressure. There is no evidence of pulmonary hypertension. Great Vessels There is mild dilatation of the ascending aorta measuring 4.20 cm. The visualized portions of the pulmonary artery and branches are normal. Venous The inferior vena cava was not well visualized. Pericardium/Pleural There is a small pericardial effusion. There are no definitive echocardiographic findings of tamponade physiology. Prior Study Comparison Changes noted compared to prior study dated: 10/01/2022. Ascending aorta 4.2 cm. Measurements 2D Linear Measurements IVSd: 1.29 0.6-0.9/0.6-1.0 cm LVIDd: 5.12 3.9-5.3/4.2-5.9 cm LVIDd Index: 2.51 2.4-3.2/2.2-3.1 cm/m2 LVIDs: 3.12 2.0-3.6 cm LVPWd: 1.11 0.7-1.1 cm LA Diam: 4.50 2.7-3.8/3.0-4.0 cm LAIDs Index: 2.21 1.5-2.3 cm/m2 LV Mass: 302.68 67-162/88-224 g LV Mass Index: 148.37 43-95/49-115 g/m2 LVOT Diam: 2.20 3.0+(-)1.3 cm 2D Systolic Function EF 4C: 56.20 >55% EF 2C: 50.40 >55% EF BiP: 54.00 >55% Mitral Valve MV Pk E: 0.90 Aortic Valve AoV Pk Abiodun: 1.80 AoV Mn Abiodun: 1.26 AoV VTI: 0.32 AoV Pk Grad: 13.00 Aov Mn Grad: 8.00 ISIDRO Cont.VTI: 2.43 AI Pk Abiodun: 3.60 AI Kleberg: 2.03 LVOT LVOT Pk Abiodun: 1.13 LVOT Mn Abiodun: 0.76 LVOT VTI: 0.21 LVOT Pk Grad: 5.00 LVOT Mn Grad: 3.00 LVOT Diam: 2.20 LVOT Area: 3.80 Diastolic Function MV Pk E: 0.90 Right Ventricle TAPSE (mm): 10.70 TVS' Abiodun: 7.00 Tricuspid Valve TR Pk Abiodun: 2.19 TR Pk Grad: 19.00 RA Press: 3.00 RVSP: 22.00 Great Vessels Aorta Sinus of Valsalva: 3.40 2.0-3.5 cm Ao Asc: 4.20 2.1-3.4 cm Ao Arch: 2.90 Pulmonary Valve PV Pk Abiodun: 0.71 Peak PV Grad: 2.00 Updated in Other Vendor System with Status of Final Mohinder Bernal MD electronically signed on 12/27/2023 6:37:38 PM with status of Final
== END ==
LOC: HO.CARD 15:05
PROVIDERS: PCP Student in an Organized Health Care Education/Training Program; Visit Provider Internal Medicine
DX: R06.02 Shortness of breath (principal)
CPT/HCPCS: 93306

== ENCOUNTER → 2023-12-24 15:10 | Outpatient (BNV) | payer MEDICARE, MEDICAID, SELFPAY | PROVIDERS: PCP Student in an Organized Health Care Education/Training Program; Visit Provider Internal Medicine Cardiovascular Disease | DX: I35.1 Nonrheumatic aortic (valve) insufficiency (principal); I34.0 Nonrheumatic mitral (valve) insufficiency | CPT/HCPCS: 93306 ==

== ENCOUNTER 2024-01-27 11:29 | Outpatient (REF) | payer MEDICARE, MEDICAID, SELFPAY ==
[2024-01-27 13:43] LABS: B Type Natriuretic Peptide 189 pg/mL (<100)
[2024-01-27 14:18] LABS: Anion Gap 13 (12-20); Blood Urea Nitrogen 8 mg/dL (9-16); Calcium 8.4 mg/dL (8.4-10.2); Carbon Dioxide 26 mmol/L (22-29); Chloride 108 mmol/L (96-108); Estimated Glomerular Filt Rate > 60; Glucose Random 115 mg/dL (60-115); Potassium 3.2 mmol/L (3.3-5.1); Sodium 144 mmol/L (135-145)
== END 2024-01-27 11:30 | disposition home or self-care (01) ==
LOC: HO.HMGCLDS 11:29
PROVIDERS: PCP Student in an Organized Health Care Education/Training Program; Visit Provider Internal Medicine
DX: I11.0 Hypertensive heart disease with heart failure (principal); I50.9 Heart failure, unspecified
CPT/HCPCS: 36415; 80048; 83880

== ENCOUNTER 2024-04-10 08:50 | Outpatient (REF) | payer MEDICARE, MEDICAID, SELFPAY ==
[2024-04-10 10:58] LABS: Anion Gap 13 (12-20); Blood Urea Nitrogen 13 mg/dL (9-16); Calcium 9.5 mg/dL (8.4-10.2); Carbon Dioxide 26 mmol/L (22-29); Chloride 111 mmol/L (96-108); Cholesterol 127 mg/dL (<200); Estimated Glomerular Filt Rate > 60; Glucose Random 102 mg/dL (60-115); HDL Cholesterol 41 mg/dL (>40); LDL Cholesterol Calculated 60 mg/dL (<100); Potassium 4.2 mmol/L (3.3-5.1); Sodium 146 mmol/L (135-145); Triglycerides 132 mg/dL (<150)
== END 2024-04-10 08:51 | disposition home or self-care (01) ==
LOC: HO.HMGCLDS 08:50
PROVIDERS: PCP Student in an Organized Health Care Education/Training Program; Referring Provider Internal Medicine; Visit Provider Student in an Organized Health Care Education/Training Program
DX: I10 Essential (primary) hypertension (principal); I48.91 Unspecified atrial fibrillation; I25.10 Atherosclerotic heart disease of native coronary artery without angina pectoris; I35.1 Nonrheumatic aortic (valve) insufficiency
CPT/HCPCS: 36415; 80048; 80061

== ENCOUNTER 2024-05-09 12:09 | Outpatient (REF) | payer MEDICARE, MEDICAID, SELFPAY ==
[2024-05-09 14:17] LABS: Anion Gap 10 (12-20); Blood Urea Nitrogen 10 mg/dL (9-16); Calcium 9.3 mg/dL (8.4-10.2); Carbon Dioxide 29 mmol/L (22-29); Chloride 112 mmol/L (96-108); Estimated Glomerular Filt Rate > 60; Glucose Random 102 mg/dL (60-115); Potassium 4.3 mmol/L (3.3-5.1); Sodium 147 mmol/L (135-145); Uric Acid 5.9 mg/dL (3.4-7.0)
== END 2024-05-09 12:10 | disposition home or self-care (01) ==
LOC: HO.HMGCLDS 12:09
PROVIDERS: PCP Student in an Organized Health Care Education/Training Program; Visit Provider Student in an Organized Health Care Education/Training Program
DX: M1A.09X0 Idiopathic chronic gout, multiple sites, without tophus (tophi) (principal)
CPT/HCPCS: 36415; 80048; 84550

== ENCOUNTER 2024-05-11 14:01 | Outpatient (AMB) | payer MEDICARE, MEDICAID, SELFPAY ==
--- NOTE | 2024-05-11 14:09 | MHC.OFFVIS ---
Vital Signs 05/11/24 14:14 Height 5 ft 7 in Weight 222 lb 10.67 oz BMI 34.9 BP 134/68 Blood Pressure Location Rt brachial Position Sitting Pulse 54 Pulse Source Pulse Oximeter Pulse Oximetry (%) 96 Oxygen Delivery Method Room Air Intake Visit Reasons: Gout Intake Note: Patient presents for Gout. Pulp House Supervisor Required: Yes Pulp House Supervisor Language: [place] Pulp House Supervisor Services: Pulp House Supervisor Offered & Declined Information Interpreted: non-clinical & clinical Corporate Controller: Corporate Controller Present (Wong Boyer) Accompanied by: Daughter Allergies bell [CHERRIES] Allergy (Unknown, Verified 05/11/24 14:13) RASH phenytoin [From DILANTIN] Allergy (Unknown, Verified 05/11/24 14:13) HIVES strawberry [STRAWBERRY] Allergy (Unknown, Verified 05/11/24 14:13) RASH Medication List - Last Reconciled 05/11/24 by Herbert Keita MD allopurinol 100 mg PO BID amlodipine 10 mg PO DAILY apixaban (Eliquis) 5 mg PO BID 90 days atorvastatin (Lipitor) 40 mg PO DAILY cyanocobalamin (vitamin B-12) 1,000 mcg PO DAILY finasteride 5 mg PO DAILY 90 days furosemide (Lasix) 20 mg PO DAILY levetiracetam 750 mg PO BID loratadine 10 mg PO DAILY metoprolol succinate ER 100 mg PO DAILY tamsulosin (Flomax) 0.4 mg PO DAILY 90 days HPI Comments Details: 84 yoM presents for follow-up of gout. He is here with his daughter who is his tariff publishing agent. He is doing well overall with no gout flares since last visit. On allopurinol 100 mg Twice daily [facility] Medical History Ischemic stroke Essential hypertension Atherosclerotic cardiovascular disease Non-rheumatic aortic regurgitation Gout Surgical History History of total right knee replacement Family History Father No problems noted. Mother No problems noted. Social History Alcohol intake: never Patient Tobacco Use Status: Never used Tobacco Review of Systems Musc Details: Left knee pain with walking Reports arthralgias Physical Exam Vital Signs: Last Vital Signs Pulse 54 05/11/24 14:14 BP 134/68 05/11/24 14:14 Pulse Ox 96 05/11/24 14:14 Oxygen Delivery Method Room Air 05/11/24 14:14 BMI result Body Mass Index 34.9 Const General: healthy appearing, comfortable and no acute distress Nutritional Appearance: obese (Obese) Limitations: ambulation with cane HEENT Head: Yes normocephalic and Yes atraumatic Resp Effort & Inspection: normal respiratory effort Skin General skin exam: no rashes or lesions noted Extrem Other: Bilateral lower limb pitting edema Some osteoarthritic changes of his hands with no synovitis No tophi noted Assessment & Plan Assessment & Plan (1) Gout: Code(s): M10.9 - Gout, unspecified Category: Medical Qualifiers: Gout site: multiple sites Gout etiology: idiopathic Chronicity: chronic Presence of tophus: without tophus Qualified Code(s): M1A.09X0 - Idiopathic chronic gout, multiple sites, without tophus (tophi) Plan: This is an 84-year-old male with gout.? He is on allopurinol 100 mg Twice daily.? His gout is well controlled.? Serum uric acid 5.9 mg/dL 05/2024 which is at target. Continue allopurinol 100 mg Twice daily. Labs before next visit in 6 months (2) Pitting edema: Code(s): R60.9 - Edema, unspecified Category: Medical Plan: Follow-up with boiler tube reamer Plan I spent 18 minutes reviewing patient's chart, evaluating patient, ordering diagnostic workup, counseling patient and documenting in the chart Orders: Orders Basic Metabolic Panel 6 Months M1A.09X0 - Idiopathic chronic gout, multiple sites, without tophus (tophi) Uric Acid 6 Months M1A.09X0 - Idiopathic chronic gout, multiple sites, without tophus (tophi) Coding Level of Care Code Est Pt Level 3 (12471) Diagnoses Idiopathic chronic gout of multiple sites without tophus M1A.09X0 Gout site: multiple sites Gout etiology: idiopathic Chronicity: chronic Presence of tophus: without tophus Pitting edema R60.9
[2024-05-11 14:14] VITALS: BP 134/68; PULSE 54; O2SAT 96; BMI 34.9
== END 2024-05-11 14:28 | disposition home or self-care (01) ==
PROVIDERS: PCP Student in an Organized Health Care Education/Training Program; Visit Provider Student in an Organized Health Care Education/Training Program
DX: M1A.09X0 Idiopathic chronic gout, multiple sites, without tophus (tophi) (principal); R60.9 Edema, unspecified
CPT/HCPCS: 99213

== ENCOUNTER → 2024-05-11 14:01 | Outpatient (BNVA) | payer MEDICARE, MEDICAID, SELFPAY | PROVIDERS: PCP Student in an Organized Health Care Education/Training Program; Visit Provider Student in an Organized Health Care Education/Training Program | DX: M1A.09X0 Idiopathic chronic gout, multiple sites, without tophus (tophi) (principal); R60.9 Edema, unspecified; Z79.899 Other long term (current) drug therapy | CPT/HCPCS: 99212 ==

== ENCOUNTER 2024-07-14 13:56 | Outpatient (AMB) | payer MEDICARE, MEDICAID, SELFPAY ==
--- NOTE | 2024-07-14 14:01 | MHC.OFFVIS ---
Intake Visit Reasons: 1Y follow up PVR Intake Note: Patient is present for Urology Med: Tamsulosin, Finasteride, Allopurinol, Vitamin B12 Antibiotic Allergy: None Blood Thinner: Apixaban Last PVR: Todays PVR: 36ml's LABS: Patient Symptoms: Food Preparation Kitchen Aide Required: No Allergies bell [CHERRIES] Allergy (Unknown, Verified 07/14/24 14:11) RASH phenytoin [From DILANTIN] Allergy (Unknown, Verified 07/14/24 14:11) HIVES strawberry [STRAWBERRY] Allergy (Unknown, Verified 07/14/24 14:11) RASH [facility] Medical History Ischemic stroke Essential hypertension Atherosclerotic cardiovascular disease Non-rheumatic aortic regurgitation Gout Surgical History History of total right knee replacement Family History Father No problems noted. Mother No problems noted. Social History Alcohol intake: never Patient Tobacco Use Status: Never used Tobacco Results AMB Urinalysis, Automated UA Leukoctes 0 Trae/uL Last Edit by Cecelia Yadav CMA on 07/14/24 14:15 UA Nitrite Negative Last Edit by Cecelia Yadav CMA on 07/14/24 14:15 UA Urobilinogen 0.2 mg/dL Last Edit by Cecelia Yadav CMA on 07/14/24 14:15 UA Protein 0 mg/dL Last Edit by Cecelia Yadav CMA on 07/14/24 14:15 UA pH 6.0 Last Edit by Cecelia Yadav CMA on 07/14/24 14:15 UA Blood 0 Kieran/uL Last Edit by Cecelia Yadav CMA on 07/14/24 14:15 UA Specific [place] 1.020 Last Edit by Cecelia Yadav CMA on 07/14/24 14:15 UA Ketone Negative Last Edit by Cecelia Yadav CMA on 07/14/24 14:15 UA Bilirubin 0 mg/dL Last Edit by Cecelia Yadav CMA on 07/14/24 14:15 UA Glucose 0 mg/dL Last Edit by Cecelia Yadav CMA on 07/14/24 14:15 Assessment & Plan Assessment & Plan Orders: Orders AMB Urinalysis Automated Today Z13.9 - Encounter for screening, unspecified AMB Post Void Residual by ultrasound Today R39.15 - Urgency of urination Coding
--- NOTE | 2024-07-14 14:20 | A.OFFVIS_ITS ---
Intake Visit Reasons: 1Y follow up PVR Allergies bell [CHERRIES] Allergy (Unknown, Verified 07/14/24 14:11) RASH phenytoin [From DILANTIN] Allergy (Unknown, Verified 07/14/24 14:11) HIVES strawberry [STRAWBERRY] Allergy (Unknown, Verified 07/14/24 14:11) RASH PFSH Medical History Ischemic stroke Essential hypertension Atherosclerotic cardiovascular disease Non-rheumatic aortic regurgitation Gout Surgical History History of total right knee replacement Family History Father No problems noted. Mother No problems noted. Social History Alcohol intake: never Patient Tobacco Use Status: Never used Tobacco Office Procedures Post Void Residual Post Residual Void Post Void Residual (PVR): 36 [id number] Void Residual by ultrasound Results AMB Urinalysis, Automated UA Leukoctes 0 Trae/uL Last Edit by Cecelia Yadav CMA on 07/14/24 14:15 UA Nitrite Negative Last Edit by Cecelia Yadav CMA on 07/14/24 14:15 UA Urobilinogen 0.2 mg/dL Last Edit by Cecelia Yadav CMA on 07/14/24 14:1 5 UA Protein 0 mg/dL Last Edit by Cecelia Yadav CMA on 07/14/24 14:15 UA pH 6.0 Last Edit by Cecelia Yadav CMA on 07/14/24 14:15 UA Blood 0 Kieran/uL Last Edit by Cecelia Yadav CMA on 07/14/24 14:15 UA Specific [place] 1.020 Last Edit by Cecelia Yadav CMA on 07/14/24 14: 15 UA Ketone Negative Last Edit by Cecelia Yadav CMA on 07/14/24 14:15 UA Bilirubin 0 mg/dL Last Edit by Cecelia Yadav CMA on 07/14/24 14:15 UA Glucose 0 mg/dL Last Edit by Cecelia Yadav CMA on 07/14/24 14:15 Results Reviewed Results Reviewed: Laboratory Last Values Urine pH (Auto) 6.0 07/14/24 14:14 Specific [place] (Auto) 1.020 07/14/24 14:14 Urine Protein (Auto) 0 mg/dL 07/14/24 14:14 Glucose (UA)(Auto) 0 mg/dL 07/14/24 14:14 Urine Ketones (Auto) Negative 07/14/24 14:14 Urine Blood (Auto) 0 Kieran/uL 07/14/24 14:14 Urine Nitrite (Auto) Negative 07/14/24 14:14 Urine Bilirubin (Auto) 0 mg/dL 07/14/24 14:14 Urine Urobilinogen (Auto) 0.2 mg/dL 07/14/24 14:14 Leukocyte Esterase (Auto) 0 Trae/uL 07/14/24 14:14 Assessment & Plan Assessment & Plan Orders: Orders AMB Urinalysis Automated Today Z13.9 - Encounter for screening, unspecified AMB Post Void Residual by ultrasound Today R39.15 - Urgency of urination Coding CPT Codes Post Residual Void - PVR CPT Code: 23239-Xghc Void Residual by ultrasound ([id number])
--- NOTE | 2024-07-14 14:21 | A.OFFVIS_ITS ---
Intake Visit Reasons: 1Y follow up PVR Allergies bell [CHERRIES] Allergy (Unknown, Verified 07/14/24 14:11) RASH phenytoin [From DILANTIN] Allergy (Unknown, Verified 07/14/24 14:11) HIVES strawberry [STRAWBERRY] Allergy (Unknown, Verified 07/14/24 14:11) RASH HPI Comments Details: Carina is a pleasant male. He is a patient of Dr. Lyn. He is seen for the following urologic conditions - urethral stricture - lower urinary tract symptoms Twelve month follow-up Low PVR and 50 cc Remains on combination tamsulosin with finasteride Lower urinary tract symptoms Nocturia 2-3 Prior history of distal urethral stricture which has been dilated by patient with intermittent self catheterization. TURP 2014 PSA 01/19 11, 09/23 3.5, 04/23 3.0 Cystoscopy 06/22 prior TURP Current medications tamsulosin and finasteride PFSH Medical History Ischemic stroke Essential hypertension Atherosclerotic cardiovascular disease Non-rheumatic aortic regurgitation Gout Surgical History History of total right knee replacement Family History Father No problems noted. Mother No problems noted. Social History Alcohol intake: never Patient Tobacco Use Status: Never used Tobacco Review of Systems Const Denies chills and Denies fever(s) Card Reports no additional complaints and Denies syncope Resp Denies cough GI Denies abdominal pain and Denies heartburn Reports as per HPI and Denies change in libido Neuro Denies syncope Psych Denies change in libido Endo Denies change in libido Physical Exam Const General: cooperative, healthy appearing, comfortable and no acute distress Orientation/consciousness: patient oriented x3 HEENT Face and sinus: Yes normal facial exam Mouth: moist mucous membranes Neck Neck: Yes normal visual inspection, Yes full ROM and Yes trachea midline Chest Chest palpation & inspection: normal inspection of the chest Resp Effort & Inspection: normal respiratory effort, able to speak in complete sentences and no respiratory distress GI Inspection: Yes normal to inspection Back/Spine/Pelvis Cervical Spine: normal cervical lordosis Thoracic/Lumbar Spine: thoracic and lumbar spine normal to inspection Skin General skin exam: no rashes or lesions noted Neuro General: patient oriented x3, gait normal, tone normal and moves all extremities Extrem General: Yes normal to inspection and Yes capillary refill normal Office Procedures Post Void Residual Post Residual Void Post Void Residual (PVR): 36 [id number] Void Residual by ultrasound Results AMB Urinalysis, Automated UA Leukoctes 0 Trae/uL Last Edit by Cecelia Yadav CMA on 07/14/24 14:15 UA Nitrite Negative Last Edit by Cecelia Yadav CMA on 07/14/24 14:15 UA Urobilinogen 0.2 mg/dL Last Edit by Cecelia Yadav CMA on 07/14/24 14:1 5 UA Protein 0 mg/dL Last Edit by Cecelia Yadav CMA on 07/14/24 14:15 UA pH 6.0 Last Edit by Cecelia Yadav CMA on 07/14/24 14:15 UA Blood 0 Kieran/uL Last Edit by Cecelia Yadav CMA on 07/14/24 14:15 UA Specific [place] 1.020 Last Edit by Cecelia Yadav CMA on 07/14/24 14: 15 UA Ketone Negative Last Edit by Cecelia Yadav CMA on 07/14/24 14:15 UA Bilirubin 0 mg/dL Last Edit by Cecelia Yadav CMA on 07/14/24 14:15 UA Glucose 0 mg/dL Last Edit by Cecelia Yadav CMA on 07/14/24 14:15 Results Reviewed Results Reviewed: Laboratory Last Values Urine pH (Auto) 6.0 07/14/24 14:14 Specific [place] (Auto) 1.020 07/14/24 14:14 Urine Protein (Auto) 0 mg/dL 07/14/24 14:14 Glucose (UA)(Auto) 0 mg/dL 07/14/24 14:14 Urine Ketones (Auto) Negative 07/14/24 14:14 Urine Blood (Auto) 0 Kieran/uL 07/14/24 14:14 Urine Nitrite (Auto) Negative 07/14/24 14:14 Urine Bilirubin (Auto) 0 mg/dL 07/14/24 14:14 Urine Urobilinogen (Auto) 0.2 mg/dL 07/14/24 14:14 Leukocyte Esterase (Auto) 0 Trae/uL 07/14/24 14:14 Assessment & Plan Assessment & Plan (1) BPH w urinary obs/LUTS: Code(s): N40.1 - Benign prostatic hyperplasia with lower urinary tract symptoms; N13.8 - Other obstructive and reflux uropathy Category: Medical (2) Elevated PSA: Code(s): R97.20 - Elevated prostate specific antigen [PSA] Category: Medical Plan Twelve month follow-up Orders: Orders AMB Urinalysis Automated Today Z13.9 - Encounter for screening, unspecified AMB Post Void Residual by ultrasound Today R39.15 - Urgency of urination Medications: Refilled finasteride 5 mg PO DAILY 90 days 90 tabs 3RF N13.8 - Other obstructive and reflux uropathy, N40.1 - Benign prostatic hyperplasia with lower urinary tract symptoms tamsulosin (Flomax) 0.4 mg PO DAILY 90 days 90 caps 3RF N13.8 - Other obstructive and reflux uropathy, N40.1 - Benign prostatic hyperplasia with lower urinary tract symptoms Patient Instructions: Imaging studies, laboratory and physical exam results were discussed and reviewed in detail. No major barriers to patient understanding were identified. An opportunity to ask questions regarding the treatment plan was provided. All questions were answered. The patient expressed understanding and agreement with the above treatment plan. The patient is aware they should contact our office by phone for worsening of their current condition or the appearance of new urologic symptoms. Compliance is encouraged with any medications and followup testing that is ordered. It is a privilege to participate in the urologic care of your patient. If you have any questions or concerns regarding treatment for the above conditions, or other urologic issues, please do not hesitate to contact me. The office telephone contact is [phone]. This note is constructed using voice recognition software. While every effort has been made to ensure accuracy head silverman errors may have been included. Yours sincerely, Dr Stephane Bryan MD, [facility] - Urology Providers of Expert, Compassionate Care for the Genitourinary System Coding Level of Care Code Est Pt Level 3 (42217) Diagnoses BPH w urinary obs/LUTS N40.1; N13.8 Elevated PSA R97.20 CPT Codes Post Residual Void - PVR CPT Code: 48948-Tqfn Void Residual by ultrasound ([id number])
== END 2024-07-14 14:32 | disposition home or self-care (01) ==
PROVIDERS: PCP Student in an Organized Health Care Education/Training Program; Visit Provider Urology
DX: N40.1 Benign prostatic hyperplasia with lower urinary tract symptoms (principal); N13.8 Other obstructive and reflux uropathy; R97.20 Elevated prostate specific antigen [PSA]; Z13.9 Encounter for screening, unspecified
CPT/HCPCS: 99213

== ENCOUNTER → 2024-07-14 13:56 | Outpatient (BNVA) | payer MEDICARE, MEDICAID, SELFPAY | PROVIDERS: PCP Student in an Organized Health Care Education/Training Program; Visit Provider Urology | DX: N40.1 Benign prostatic hyperplasia with lower urinary tract symptoms (principal); N13.8 Other obstructive and reflux uropathy; R39.15 Urgency of urination; R97.20 Elevated prostate specific antigen [PSA] | CPT/HCPCS: 51798; 81003; 99212 ==

== ENCOUNTER 2024-12-26 09:00 | Outpatient (AMB) | payer MEDICARE, MEDICAID, SELFPAY ==
[2024-12-26 09:06] VITALS: BP 122/82; PULSE 68
--- NOTE | 2024-12-26 09:06 | MHC.OFFVIS ---
Vital Signs 12/26/24 09:06 Height 5 ft 7 in BMI Reason not done Patient refused/unable BP 122/82 Blood Pressure Location Lt brachial Position Sitting Pulse 68 Intake Visit Reasons: Atherosclerotic cardiovascular disease Intake Note: 1 year follow-up with ekg feeling good Pole Maker Required: Yes Pole Maker Services: Pole Maker Offered & Declined Qual Field Manager: Qual Field Manager Present Accompanied by: Daughter Allergies bell [CHERRIES] Allergy (Unknown, Verified 07/14/24 14:11) RASH phenytoin [From DILANTIN] Allergy (Unknown, Verified 07/14/24 14:11) HIVES strawberry [STRAWBERRY] Allergy (Unknown, Verified 07/14/24 14:11) RASH Medication List - Last Reconciled 12/26/24 by Musa Araujo MD allopurinol 100 mg PO BID amlodipine 10 mg PO DAILY apixaban (Eliquis) 5 mg PO BID atorvastatin (Lipitor) 40 mg PO DAILY cyanocobalamin (vitamin B-12) 1,000 mcg PO DAILY finasteride 5 mg PO DAILY 90 days levetiracetam 750 mg PO BID loratadine 10 mg PO DAILY metoprolol succinate ER 100 mg PO DAILY tamsulosin (Flomax) 0.4 mg PO DAILY 90 days HPI Comments Details: Carina returns for follow-up regarding coronary disease. In 2016, had stroke/NSTEMI in setting of elective knee surgery. He also has chronic atrial fibrillation on appropriate anticoagulation. He is here with his family. Overall, just about the same as before. Minimal activity. According to family, he barely walks and even if it does, is just for a few minutes at a time. In the past, there was a question of shortness of breath/wheezing. We had tried diuretics but apparently that may no change. He has spontaneously better now in that regard. No other concerns like chest pains or bleeding issues related to anticoagulation. COUNTS INCLUDE 234 BEDS AT THE [facility] Medical History Ischemic stroke Essential hypertension Atherosclerotic cardiovascular disease Non-rheumatic aortic regurgitation Gout Surgical History History of total right knee replacement Family History Father No problems noted. Mother No problems noted. Social History Alcohol intake: never Patient Tobacco Use Status: Never used Tobacco Review of Systems Const Denies chills, Denies fatigue, Denies fever(s), Denies frequent falls, Denies weakness, Denies weight gain and Denies weight loss ENT Denies dizziness Card Denies chest pain, Denies leg edema, Denies lightheadedness, Denies palpitations, Denies dyspnea, Denies dyspnea on exertion, Denies orthopnea and Denies other (loss of consciousness) Resp Denies cough, Denies dyspnea and Denies dyspnea on exertion GI Denies hematochezia and Denies change in stool character Musc Denies abnormal gait, Denies muscle weakness, Denies numbness, Denies radiating pain into limb and Denies tingling Neuro Denies abnormal gait, Denies dizziness, Denies frequent falls, Denies numbness, Denies tingling and Denies weakness Endo Denies fatigue and Denies palpitations Physical Exam Vital Signs: Last Vital Signs Pulse 68 12/26/24 09:06 BP 122/82 12/26/24 09:06 Const General: comfortable and no acute distress Orientation/consciousness: patient oriented x3 HEENT Other: Unremarkable Head: Yes normal to inspection Neck Neck: Yes normal visual inspection Chest Chest palpation & inspection: normal inspection of the chest Resp Auscultation: clear to auscultation bilaterally Cardio Palpation: normal PMI Heart sounds: S1 normal heart sound present, S2 normal heart sound present, no gallops, no murmurs and no rubs GI Palpation (GI): Soft to palpation Back/Spine/Pelvis Other: unremarkable Skin General skin exam: no rashes or lesions noted Neuro General: patient oriented x3 Extrem Other: Trace swelling General: Yes normal to inspection Psych Mental Status: mental status grossly normal Office Procedures EKG Details: EKG with atrial fibrillation; rate 68/Min. 29288-[id number], Complete Assessment & Plan Assessment & Plan (1) Atrial fibrillation by electrocardiogram: Code(s): I48.91 - Unspecified atrial fibrillation Category: Medical Plan: Continue beta-blockers and anticoagulation. (2) Atherosclerotic cardiovascular disease: Code(s): I25.10 - Atherosclerotic heart disease of [place] coronary artery without angina pectoris Category: Medical Plan: Presumed coronary disease, but no angina or other concerning symptoms. Remains on beta-blockers/statins. Last LDL 60 mg/dL. Triglycerides 132 mg/dL. (3) Non-rheumatic aortic regurgitation: Code(s): I35.1 - Nonrheumatic aortic (valve) insufficiency Category: Medical Plan: Mild aortic regurgitation on the echocardiogram. Not clinically significant. (4) Essential hypertension: Code(s): I10 - Essential (primary) hypertension Category: Medical Plan: Stable. No changes. (5) Shortness of breath: Code(s): R06.02 - Shortness of breath Category: Medical Plan: In the past, exam had shown some wheezing. Thought to be either asthma versus diastolic heart failure. He had a chest CT scan from [facility], description of atelectasis versus scar in right middle lobe/both lower lobes. Try low-dose Lasix but apparently that made no difference. He has spontaneously improved per family. No obvious wheezing noted today. Continue to follow clinically. Plan Patient was informed and verbally consented to the use of an ambient scribe for clinic note documentation during this visit. Patient Instructions: - Keep taking your current medications including apixaban as prescribed. - Report any new chest pain, shortness of breath, or swelling immediately. - Stick to your medication schedule to keep heart rhythm stable. - Contact us if you have any new symptoms or concerns. Coding Level of Care Code Est Pt Level 4 (08440) Complex EM visit Add On G2211 Diagnoses Atrial fibrillation by electrocardiogram I48.91 Atherosclerotic cardiovascular disease I25.10 Non-rheumatic aortic regurgitation I35.1 Essential hypertension I10 Shortness of breath R06.02 CPT Codes EKG - CPT: 18461-[id number], Complete ([id number])
--- OUTSIDE RECORDS SUMMARY | 2024-12-26 09:28 | XMS_ITS | Encounter Summary ---
Author Organization [employer] Address [address] [place] [address] 7 [place] [address] Care Team Providers Care Mainframe Programmer Name Role Phone Juliana Lyn MD Primary Care Provider [phone] Reason for Visit * Reason Onset Date Comments Hospital Follow-up 09/22/2023 Encounter Details Date Type Department Care Team ([facility] st Contact Info) Description 09/22/2023 Telephone [facility] CHC MED & PEDS [address] [place] [address] Juliana Lyn MD [address] [place] [address] Hospital Follow-up Social History Tobacco Use Types Packs/Day Years Used Date Smoking Tobacco: Never Smokeless Tobacco: Never Alcohol Use Standard Drinks/Week Comments Never 0 (1 standard drink = 0.6 oz pur e alcohol) Alcohol Answer Date Recorded Frequency of Alcohol Consumption Not on file 07/02/2023 Average Number of Drinks Not on file 023 Frequency of Binge Drinking Not on file 08/2022 Score 0 07/02/2023 Depression Answer Date Recorded Patient Health Questionnaire-9 Score 0 07/02/2023 Patient Health Questionnaire-9 Score 0 07/02/2023 Last PHQ-9: Questionnaire Data Not on file 1 09/02/2022 Housing Stability Answer Date Recorded What is your housing situation today? I have bertha pepe 06/22/[address] you li ve. Do you have problems with any of the following? None of the above 06/22/2023 Food Insecurity Answer Date Recorded Within the past 12 months, y ou worried that your food would run out before you got money to buy more: Never True 06/22/2023 Within the past 12 months,th e food you bought just didn't last and you didn't have enough money to get more: Never True Transportation Answer Date Recorded In the past 12 months, has l ack of transportation kept you from medical appts, meetings, work or from getting things needed for daily living? No 06/22/2023 Utilities Answer Date Recorded In the past 12 months, has t he electric, gas, oil or water company threatened to shut off services in your home? No 06/22/2023 Depression Answer Date Recorded Patient Health Questionnaire-2 Score 0 07/02/2023 Sex and Gender Information Value Date Recorded Sex Assigned at Male 06/01/2022 10:25 AM EDT Legal Sex Male 10:25 AM EDT Gender Identity Male 06/01/2022 10:25 AM EDT Sexual Orientation Straight 06/01/2022 10 :25 AM EDT documented as of this encounter Miscellaneous Notes * Telephone Encounter - Bridgette Asif - 09/24/2023 11:32 AM EST Tc from justin walters in regards to message above. Please contact for scheduling at [phone] * Telephone Encounter - Sriram Perez - 09/22/2023 2:24 PM EST Tc from pt requesting a [facility] appt. 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
== END 2024-12-26 09:29 | disposition home or self-care (01) ==
LOC: HO.HCS 09:00
PROVIDERS: PCP Student in an Organized Health Care Education/Training Program; Visit Provider Internal Medicine
DX: I48.91 Unspecified atrial fibrillation (principal); I25.10 Atherosclerotic heart disease of native coronary artery without angina pectoris; I35.1 Nonrheumatic aortic (valve) insufficiency; I10 Essential (primary) hypertension; R06.02 Shortness of breath
CPT/HCPCS: 93010; 99214; G2211

== ENCOUNTER → 2024-12-26 09:00 | Outpatient (BNVA) | payer MEDICARE, MEDICAID, SELFPAY | PROVIDERS: PCP Student in an Organized Health Care Education/Training Program; Visit Provider Internal Medicine | DX: I48.91 Unspecified atrial fibrillation (principal); I25.10 Atherosclerotic heart disease of native coronary artery without angina pectoris; I10 Essential (primary) hypertension; I35.1 Nonrheumatic aortic (valve) insufficiency; R06.02 Shortness of breath; R94.31 Abnormal electrocardiogram [ECG] [EKG] | CPT/HCPCS: 93005; 99212 ==

== ENCOUNTER 2025-05-09 10:23 | Outpatient (REF) | payer MEDICARE, MEDICAID, SELFPAY ==
[2025-05-09 15:12] LABS: Alanine Aminotransferase 22 U/L (0-40); Albumin Level 4.1 g/dL (3.5-5.0); Alkaline Phosphatase 91 U/L (39-117); Anion Gap 11 (12-20); Aspartate Amino Transferase 25 U/L (5-37); Blood Urea Nitrogen 9 mg/dL (9-16); Calcium 8.6 mg/dL (8.4-10.2); Carbon Dioxide 25 mmol/L (22-29); Chloride 113 mmol/L (96-108); Cholesterol 115 mg/dL (<200); Estimated Glomerular Filt Rate > 60; HDL Cholesterol 38 mg/dL (>40); Potassium 3.6 mmol/L (3.3-5.1); Sodium 145 mmol/L (135-145); Total Protein 6.1 g/dL (6.5-8.0); Triglycerides 75 mg/dL (<150)
== END 2025-05-09 10:24 | disposition home or self-care (01) ==
LOC: HO.CHCLDS 10:23
PROVIDERS: Visit Provider Student in an Organized Health Care Education/Training Program
DX: I10 Essential (primary) hypertension (principal)
CPT/HCPCS: 36415; 80048; 80061; 80076

== ENCOUNTER 2025-06-06 15:15 | Outpatient (REF) | payer MEDICARE, MEDICAID, SELFPAY ==
[2025-06-06 18:12] LABS: MANUAL DIFF FLAG NO
--- OUTSIDE RECORDS SUMMARY | 2025-06-06 18:14 | XMS_ITS | Encounter Summary ---
Author Organization [employer] Address [address] [place] [address] 7 [place] [address] Care Team Providers Care Infant Lead Teacher Name Role Phone Juliana Lyn MD Primary Care Provider [phone] Claire Sellers MD Primary Care Provider [phone] Reason for Visit * Reason Onset Date Comments Hospital Follow-up 09/22/2023 Encounter Details Date Type Department Care Team ([facility] st Contact Info) Description 09/22/2023 Telephone [facility] CHC MED & PEDS [address] [place] [address] Juliana Lyn MD [address] [place] [address] Hospital Follow-up Social History Tobacco Use Types [...] message above. Please contact for scheduling at [phone] * Telephone Encounter - Sriram Perez - 09/22/2023 2:24 PM EST Tc from pt requesting a F appt. 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 Please contact pt @ [phone] documented in this encounter Plan of Treatment Not on file documented as of this encounter Visit Diagnoses Not on filedocumented in this encounter Additional Health Concerns Assessment Noted Time PHQ-9 Depression Total Score: 0 07/02/20 10:54 AM EST documented as of this encounter Care Teams Infant Lead Teacher Relationship Specialty Start Date End Date Juliana Lyn MD [address] [place] [address] PCP - General Family Medicine 08/02/18 05/30/25 Claire Sellers MD [address] [place] [address] PCP - General Family Medicine 05/31/25 documented as of this encounter
--- OUTSIDE RECORDS SUMMARY | 2025-06-06 18:14 | XMS_ITS | Encounter Summary ---
Author Organization [employer] Address [address] [place] [address] [address] [place] [address] Care Team Providers Care Air Twister Winder Name Role Phone Juliana Lyn MD Primary Care Provider [phone] Claire Sellers MD Primary Care Provider Encounter Details Date Type Department Care Team (Late st Contact Info) Description 01/05/2023 Orders Only [facility] MEDICINE [address] [place] [address] Annette Brian LPN Social History Tobacco Use Types Packs/Day Years Used Date Smoking Tobacco: Never Assessed Sex and Gender Information Value Date Recorded Sex Assigned at Male 06/01/2022 10:25 AM EDT Legal Sex Male 10:25 AM EDT Gender Identity Male 06/01/2022 10:25 AM EDT Sexual Orientation Straight 06/01/2022 10 :25 AM EDT documented as of this encounter Plan of Treatment Not on file documented as of this encounter Procedures Procedure Name Priority Date/Time Associated Diagnosis Comments CBC WITH AUTO DIFFERENTIAL Routine 11/05/2023 2:28 PM EDT URIC ACID Routine 11/05/2023 2:28 PM EDT BASIC METABOLIC PANEL Routine 11/05/2023 2:28 PM EDT documented in this encounter Results * Uric acid (11/05/2023 2:28 PM EDT) Uric Acid 5.6 3.4 - 7.0 mg/dL [facility] 11/05/2023 2:28 PM EDT 11/05/2023 4:06 PM EDT Generic External Data Provider LAB BLOOD ORDERAB LES Final Result Performing Organization Address City/[facility]/ZIP Co de Phone Number [facility] [address] [place] [address] [phone] * (ABNORMAL) Basic Metabolic Panel (11/05/2023 2:28 PM EDT) Sodium 145 135 - 145 mmol/L [facility] Potassium 4.4 3.3 - 5.1 mmol/L [facility] Chloride 111(H) 96 - 108 mmol/L [facility] Carbon Dioxide 26 22 - 29 mmol/L [facility] Anion Gap 12 12 - 20 [facility] Urea Nitrogen (BUN) 16 9 - 16 mg/dL [facility] Creatinine, Serum 0.87 0.5 - 1.4 mg/dL [facility] Estimated Glomerular Filt Rate >60 [facility] Comment:NOTE: For -Am erican individuals, multiply the result by 1.210.Chronic Kidney Disease: Estimated GFR < 60 mL/min/1.36f8Gjdxoj Kidney Disease: Estimated GFR < 15 mL/min/1.73m2 Glucose 97 60 - 115 mg/dL [facility] Calcium 9.1 8.4 - 10.2 mg/dL [facility] 11/05/2023 2:28 PM EDT 11/05/2023 4:06 PM EDT us Generic External Data Provider LAB BLOOD ORDERAB LES Final Result Performing Organization Address City/[facility]/ZIP Co de Phone Number [facility] [address] [place] [address] [phone] * (ABNORMAL) CBC auto differential (11/05/2023 2:28 PM EDT) White Blood Count 8.2 4.8 - 10.8 X10*3/uL [facility] Red Blood Count 4.30(L) 4.60 - 5.80 X10*6/uL [facility] Hemoglobin 14.3 14.0 - 18.0 g/dl [facility] Hematocrit 41.3(L) 42.0 - 52.0 % [facility] Mean Corpuscular Volume 96.0 80.0 - 98.0 fL [facility] Mean Corpuscular Hemoglobin 33.3(H) 27.0 - 33.0 pg [facility] Mean Corpuscular HGB Conc 34.6 31.0 - 36.0 g/dl [facility] Red Cell Distribution Width 13.2 11.0 - 16.0 % [facility] Platelet Count 205 160 - 400 X10*3/uL [facility] Mean Platelet Volume 11.4 9.4 - 12.4 fL [facility] Neutrophils Percent Auto 37.6(L) 45 - 73 % [facility] Imm Gran Pct Auto 0.2 0.0 - 0.4 % [facility] Lymphocytes Percent Auto 35.0 20 - 40 % [facility] Monocytes Percent Auto 7.0 2 - 11 % [facility] Eosinophils Percent Auto 19.2(H) 0 - 4 % [facility] Basophils Percent Auto 1.0 0 - 2 % [facility] NRBC Pct Auto 0.0 0.0 - 0.2 /100WBC [facility] Neutrophils Absolute Auto 3.1 2.0 - 8.3 x10*3/uL [facility] Imm Gran Abs Auto 0.02 0.00 - 0.03 X10*3/uL [facility] Lymphocytes Absolute Auto 2.9 1.2 - 4.9 X10*3/uL [facility] Monocytes Absolute Auto 0.6 0.1 - 1.2 X10*3/uL [facility] Eosinophils Absolute Auto 1.6(H) 0.0 - 0.4 X10*3/uL [facility] Basophils Absolute Auto 0.1 0.0 - 0.2 X10*3/uL [facility] NRBC Abs Auto 0.000 0.0 - 0.012 X10*3/uL [facility] 11/05/2023 2:28 PM EDT 11/05/2023 4:06 PM EDT us Generic External Data Provider LAB BLOOD ORDERAB LES Final Result [facility] [address] [place] [address] [phone] documented in this encounter Visit Diagnoses Not on filedocumented in this encounter Care Teams Air Twister Winder Relationship Specialty Start Date End Date Juliana Lyn MD [address] [place] [address] PCP - General Family Medicine 08/02/18 05/30/25 Claire Sellers MD [address] [place] [address] PCP - General Family Medicine 05/31/25 documented as of this encounter
--- OUTSIDE RECORDS SUMMARY | 2025-06-06 18:14 | XMS_ITS | Encounter Summary ---
Author Organization [employer] Address [address] [place] [address] Care Team Providers Care Pulpwood Buyer Name Role Phone Juliana Lyn MD Primary Care Provider [phone] Claire Sellers MD Primary Care Provider [phone] Reason for Visit * Reason Comments Med Refill Encounter Details Date Type Department Care Team ([facility] st Contact Info) Description 01/12/2023 Refill [facility] MEDICINE [address] [place], [place] [phone] Juliana Lyn MD [address] [place], [place] [phone] Hypercholesteremia; Gout, unspecified cause, unspecified chronicity, unspecified site Social History Tobacco Use Types Packs/Day Years [...] documented as of this encounter Visit Diagnoses Diagnosis Hypercholesteremia Pure hypercholesterolemia Gout, unspecified cause, unspecified chronicity, unspecified site documented in this encounter Care Teams Pulpwood Buyer Relationship Specialty Start Date End Date Juliana Lyn MD [address] [place] [address] PCP - General Family Medicine 08/02/18 05/30/25 Claire Sellers MD [address] [place] [address] PCP - General Family Medicine 05/31/25 documented as of this encounter
--- OUTSIDE RECORDS SUMMARY | 2025-06-06 18:14 | XMS_ITS | Encounter Summary ---
Author Organization [employer] Address [address] [place] [address] [address] [place] [address] Care Team Providers Care Automatic Pinsetter Mechanic Name Role Phone Juliana Lyn MD Primary Care Provider [phone] Claire Sellers MD Primary Care Provider [phone] Encounter Details Date Type Department Care Team (Latest Contact Info) Description 11/15/2018 Abstract [facility] CONVERSIONS Dental, Provider, DDS Social History Tobacco Use Types Packs/Day Years [...] on filedocumented in this encounter Care Teams Automatic Pinsetter Mechanic Relationship Specialty Start Date End Date Juliana Lyn MD [address] [place] [address] PCP - General Family Medicine 08/02/18 05/30/25 Claire Sellers MD [address] [place] [address] PCP - General Family Medicine 05/31/25 documented as of this encounter
--- OUTSIDE RECORDS SUMMARY | 2025-06-06 18:14 | XMS_ITS | Clinical Summary ---
Author Organization [employer] Address [address] [place] [address] 7 [place] [address] Care Team Providers Care Regulatory Leader Name Role Phone Claire Sellers MD Primary Care Provider [phone] Allergies Active Allergy Reactions Criticality Noted Date Comments Phenytoin 04/11/2019 Other reaction(s): hives Medications allopurinol (Zyloprim) 100 MG tabletIndicatio ns:Gout, unspecified cause, unspecified chronicity, unspecified site TAKE ONE TABLET BY MOUTH TWICE A DAY 60 tablet 5 07/28/20 23 Active albuterol 108 (90 Base) MCG/ACT inhaler Inhale 2 puffs every 4 (four) hours if needed for wheezing. 18 g 12/13/19 24 Active amLODIPine (Norvasc) 10 MG tablet TAKE ONE TABLET BY MOUTH EVERY DAY IN THE MORNING 30 tablet 11 11/14/19 25 Active Allergy Relief 10 MG tablet TAKE ONE TABLET BY MOUTH EVERY DAY IN THE MORNING 90 tablet 3 11/14/19 25 Active atorvastatin (Lipitor) 40 MG tabletIndicatio ns:Hypercholest eremia TAKE ONE TABLET BY MOUTH EVERY DAY AT BEDTIME 90 tablet 3 12/28/19 25 Active cyanocobalamin (Vitamin B-12) 1000 MCG tablet TAKE ONE TABLET BY MOUTH EVERY DAY 90 tablet 3 12/28/19 25 Active levETIRAcetam (Keppra) 750 MG tabletIndicatio ns:Seizures (CMS/HCC) (HCC) TAKE ONE TABLET BY MOUTH TWICE A DAY 60 tablet 5 02/27/20 25 Active chlorthalidone (Hygroton) 25 MG tablet Take 1 tablet (25 mg) by mouth Once per day. 30 tablet 11 05/09/20 25 026 Active Diclofenac Sodium 1 % gel To apply to the affected area 4 times a day 100 g 09/17/19 24 025 Discontinued baclofen (Lioresal) 10 MG tabletIndicatio ns:Muscle spasm Take 1 tablet (10 mg) by mouth 3 times daily. 90 tablet 09/17/19 24 025 Discontinued furosemide (Lasix) 20 MG tablet Take 20 mg by mouth. 025 Discontinued Active Problems Problem Noted Date Diagnosed Date Seizure (CMS/HCC) 07/10/2024 Benign hypertension 05/20/2015 07/02/2023 Gastroesophageal reflux disease 09/11/2013 07/02/2023 Heart murmur 07/14/2013 07/02/2023 Encounters Date Type Department Care Team Description 05/09/2025 9:30 AM EDT Office Visit [facility] [address] [place] [address] Juliana Lyn MD Generalized edema (Primary Dx); Benign hypertension; Seizure (CMS/[facility]) (HCC); Gastroesophageal reflux disease without esophagitis; Encounter for annual wellness visit; Encounter for immunization 05/09/2025 Travel 05/08/2025 Telephone [facility] [address] [place] [address] Juliana Lyn MD Chart Prep 05/07/2025 Travel 05/01/2025 Patient Outreach [facility] [address] [place] [address] Juliana Lyn MD Pre-visit Planning ([facility] screening unable to complete. ) from Last 3 Months Immunizations Immunization Administration Dates Next Due Influenza High-dose Quadriva lent Preservative Free 07/01/2022,05/15/2020 Influenza injectable quadriv alent IIV4 with preservative 05/11/2019,07/20/2018 Influenza injectable quadriv alent preservative free 07/01/2021,05/21/2017,05/20/2015 Influenza, High Dose Seasona l, Preservative Free 05/09/2025 Influenza, IIV3, injectable 06/18/2014 Influenza, seasonal, injecta ble, preservative free 06/16/2016 Influenza, trivalent, adjuvanted 05/09/2024 Pneumococcal Conjugate PCV 13 04/07/2018 Pneumococcal Polysaccharide PPSV23 06/13/2019, Tdap 05/21/2017 Social History Tobacco Use Types Packs/Day Years Used Date Smoking Tobacco: Never Smokeless Tobacco: Never Tobacco Cessation:Counseling Given: Not Answered Alcohol Use Standard Drinks/Week Comments Never 0 (1 standard drink = 0.6 oz pur e alcohol) Alcohol Answer Date Recorded Frequency of Alcohol Consumption Not on file 07/02/2023 Average Number of Drinks Not on file 023 Frequency of Binge Drinking Not on file 08/2022 Score 0 07/02/2023 Depression Answer Date Recorded Patient Health Questionnaire-9 Score 3 05/09/2025 Patient Health Questionnaire-9 Score 3 05/09/2025 Last PHQ-9: Questionnaire Data Not on file 1 Housing Stability Answer Date Recorded What is your housing situation today? I have bertha pepe 07/10/[address] you li ve. Do you have problems with any of the following? None of the above 07/10/2024 Food Insecurity Answer Date Recorded Within the past 12 months, y ou worried that your food would run out before you got money to buy more: Never True 07/10/2024 Within the past 12 months,th e food you bought just didn't last and you didn't have enough money to get more: Never True 04/2024 Transportation Answer Date Recorded In the past 12 months, has l ack of transportation kept you from medical appts, meetings, work or from getting things needed for daily living? No 07/10/2024 Utilities Answer Date Recorded In the past 12 months, has t he electric, gas, oil or water company threatened to shut off services in your home? No 07/10/2024 Depression Answer Date Recorded Patient Health Questionnaire-2 Score 0 05/09/2025 Internet Access Answer Date Recorded Internet Access Q1 No 07/10/2024 Internet Access Q2 I do not want or need it 04/2024 Sex and Gender Information Value Date Recorded Sex Assigned at Male 06/01/2022 10:25 AM EDT Legal Sex Male 10:25 AM EDT Gender Identity Male 06/01/2022 10:25 AM EDT Sexual Orientation Straight 06/01/2022 10 :25 AM EDT Last Filed Vital Signs Vital Sign Reading Time Taken Comments Blood Pressure 139/75 05/09/2025 9:46 AM EDT Pulse 75 05/09/2025 9:46 AM EDT Temperature 36.3 C (97.3 F) 05/09/2025 9:46 AM EDT Respiratory Rate 22 05/09/2025 9:46 AM EDT Oxygen Saturation 96% 07/10/2024 10:19 AM EST Inhaled Oxygen Concentration - - Weight 98 kg (216 lb) 05/09/2025 9:46 AM EDT Height 168.9 cm (5' 6.5 ) 05/09/2025 9:46 AM EDT Body Mass Index 34.34 05/09/2025 9:46 AM EDT Plan of Treatment Health Maintenance Due Date Last Done Comments Zoster Vaccines (1 of 2) 1991 RSV Patients and Patients Aged 60 years or older (1 - 1-dose 75+ series) 02/14/2016 COVID-19 Vaccine ( season) 2025 06/06/2021, 10/04/2020, 09/10/2020 Alcohol/Substance Use Screening 05/09/2026 05/09/2025 Depression Screening 05/09/2026 05/09/2025, 05/09/20 25 SDOH Screening 05/09/2026 05/09/2025 Tobacco Screening 05/09/2026 05/09/2025 DTaP/Tdap/Td Vaccines (2 - Td or Tdap) 05/21/2027 05/21/2017 Lipid Panel 05/09/2030 05/09/2025, 09/0 04/2024, 07/01/2022, Additional history exists Pneumococcal Vaccine: 50+ Years Completed 06/13/2019, 04/07/2018, 06/16/2016 Influenza Vaccine Completed 05/09/2025, , 07/01/2022, Additional history exists HIB Vaccines Aged Out No longer eligi ble based on patient's age to complete this topic HPV Vaccines Aged Out No longer eligi ble based on patient's age to complete this topic Hepatitis A Vaccines Aged Out No long er eligible based on patient's age to complete this topic Hepatitis B Vaccines Aged Out No long er eligible based on patient's age to complete this topic IPV Vaccines Aged Out No longer eligi ble based on patient's age to complete this topic Meningococcal B Vaccine Aged Out No l onger eligible based on patient's age to complete this topic Meningococcal Vaccine Aged Out No sidney alejandro eligible based on patient's age to complete this topic RSV under 20 months Aged Out No longe r eligible based on patient's age to complete this topic Rotavirus Vaccines Aged Out No longer eligible based on patient's age to complete this topic Procedures Procedure Name Priority Date/Time Associated Diagnosis Comments HEPATIC FUNCTION PANEL Routine 05/09/2025 10:24 AM EDT Benign hypertension LIPID PANEL, STANDARD Routine 05/09/2025 10:24 AM EDT Benign hypertension BASIC METABOLIC PANEL Routine 05/09/2025 10:24 AM EDT Benign hypertension from Last 3 Months Results * (ABNORMAL) Hepatic Function Panel (05/09/2025 10:24 AM EDT) Bilirubin, Total 1.5(H) 0.0 - 1.0 mg/dL [facility] Bilirubin, Direct 0.5 0.0 - 0.5 mg/dL [facility] Aspartate Amino Transferase 25 5 - 37 U/L [facility] Alanine Aminotransferase 22 0 - 40 U/L [facility] Total Protein 6.1(L) 6.5 - 8.0 g/dL [facility] Albumin Level 4.1 3.5 - 5.0 g/dL [facility] Alkaline Phosphatase 91 39 - 117 U/L [facility] Blood Venous blood specimen / Unknown 05/09/2025 10:24 AM EDT 05/09/2025 2:18 PM EDT us Juliana Lyn MD LAB BLOOD ORDERABLES Final Resul t [facility] [address] [place] [phone] [phone] * (ABNORMAL) Lipid Panel, Standard (05/09/2025 10:24 AM EDT) Triglycerides 75 <150 mg/dL [facility] Comment:Desirable Triglyceri de: less than 150 mg/dLBorderline High Triglyceride 150-199 mg/dLHigh Triglyceride: 200-499 mg/dLVery High Triglyceride: greater than or equal to 5OO mg/dL Cholesterol 115 <200 mg/dL [facility] Comment:Desirable Cholestero l: less than 200 mg/dLBorderline High Cholesterol: 200-239 mg/dLHigh Cholesterol: greater than 239 mg/dL LDL Cholesterol Calculated 62 <100 mg/dL [facility] Comment:Desirable LDL: less than 100 mg/dLNear Optimal/Above Optimal LDL: 110- 129 mg/dLBorderline High LDL: 130-159 mg/dLHigh LDL: 160-189 mg/dLVery High LDL: greater than or equal to 190 mg/dL HDL Cholesterol 38(L) >40 mg/dL [facility] Comment:Desirable HDL: great er than 40 mg/dL Note: This HDL assay may give artificially low results in patients with liver disease. Blood Venous blood specimen / Unknown 05/09/2025 10:24 AM EDT 05/09/2025 2:18 PM EDT us Juliana Lyn MD LAB BLOOD ORDERABLES Final Resul t [facility] [address] [place] [phone] * (ABNORMAL) Basic Metabolic Panel (05/09/2025 10:24 AM EDT) Sodium 145 135 - 145 mmol/L [facility] Potassium 3.6 3.3 - 5.1 mmol/L [facility] Chloride 113(H) 96 - 108 mmol/L [facility] Carbon Dioxide 25 22 - 29 mmol/L [facility] Anion Gap 11(L) 12 - 20 [facility] Urea Nitrogen (BUN) 9 9 - 16 mg/dL [facility] Creatinine, Serum 0.95 0.5 - 1.4 mg/dL [facility] Estimated Glomerular Filt Rate >60 [facility] Comment:Chronic Kidney Disea se: Estimated GFR < 60 mL/min/[id number] Kidney Disease: Estimated GFR < 15 mL/min/1.73m2 Glucose 94 60 - 115 mg/dL [facility] Calcium 8.6 8.4 - 10.2 mg/dL [facility] Blood Venous blood specimen / Unknown 05/09/2025 10:24 AM EDT 05/09/2025 2:18 PM EDT us Juliana Lyn MD LAB BLOOD ORDERABLES Final Resul t [facility] [address] [place] [address] [phone] from Last 3 [place] [id number] [facility] STANDARD Care Teams Regulatory Leader Relationship Specialty Start Date End Date Claire Sellers MD [address] [place] [phone] PCP - General Family Medicine 05/31/25
--- OUTSIDE RECORDS SUMMARY | 2025-06-06 18:14 | XMS_ITS | Encounter Summary ---
Author Organization [employer] Address [address] [place] [address] [address] [place] [address] Care Team Providers Care Matcher [employer] Name Role Phone Juliana Lyn MD Primary Care Provider [phone] Claire Sellers MD Primary Care Provider [phone] Reason for Visit * Reason Onset Date Comments Nurse Triage 09/29/2023 Encounter Details Date Type Department Care Team (Late st Contact Info) Description 09/29/2023 Telephone [facility] [address] [place] [address] Juliana Lyn MD [address] [place] [address] Nurse Triage Social History Tobacco Use Types Packs/Day Years [...] the past 12 months, has t he [employer], gas, oil or water [employer] threatened to shut off services in your [...] encounter Miscellaneous Notes * Telephone Encounter - Marlene Bowers RN - 09/29/2023 10:27 AM EST Triage call with [employer] Supervisor ID [id number] Pt gives permission for son in [place] dexter to speak for Pt. Pt is having a cough for 3 weeks now with production of clear to white sputum. Neg for fever or difficulty breathing. Pt has also reported neck pain which started after the cough began. Pt is unable to turn head to left or right without pain. Neg for swelling or redness. Home care advised to encourage increased fluids, bed rest, tylenol/ motrin for discomfort. Apt in [facility] 09/30/23 @ 220p. Insurance is verified as active prior to booking.. Pt and son in law agree with disposition. Protocol Used: Cough (Adult) Protocol-Based Disposition: See in Office or Video Visit within 3 Days Positive Triage Question: * Cough has been present for > 3 weeks * All higher-acuity triage questions were negative Care Advice Discussed: * Reassurance and Education - Cough * Cough Medicines * Coughing Spells * Prevent Dehydration * Reasons To Call Back - Difficulty breathing - Cough lasts more than 3 weeks - Fever lasts more than 3 days - You become worse * Telephone Encounter - [place] - 09/29/2023 10:01 AM EST Symptom: Neck Pain and cough- Not From Injury Outcome: Schedule an appointment to be seen within 24 hours Reason: Caller denied all higher acuity questions The caller accepted this outcome documented in this encounter Plan of Treatment Not on file documented as of this encounter Visit Diagnoses Not on filedocumented in this encounter Additional Health Concerns Assessment Noted Time PHQ-9 Depression Total Score: 0 07/02/20 23 10:54 AM EST documented as of this encounter Care Teams Matcher [employer] Relationship Specialty Start Date End Date Juliana Lyn MD [address] [place] [address] PCP - General Family Medicine 08/02/18 05/30/25 Claire Sellers MD [address] [place] [phone] PCP - General Family Medicine 05/31/25 documented as of this encounter
--- OUTSIDE RECORDS SUMMARY | 2025-06-06 18:14 | XMS_ITS | Encounter Summary ---
Author Organization [employer] Address [address] [place] [id number] Care Team Providers Care Pipe Setter Name Role Phone Juliana Lyn MD Primary Care Provider [phone] Claire Sellers MD Primary Care Provider [phone] Reason for Visit * Reason Comments Med Refill Encounter Details Date Type Department Care Team (Late st Contact Info) Description 03/08/2023 Refill [facility] [address] [place] [address] Juliana Lyn MD [address] [place] [address] Social History Tobacco Use Types Packs/Day Years [...] on filedocumented in this encounter Care Teams Pipe Setter Relationship Specialty Start Date End Date Juliana Lyn MD [address] [place] [address] PCP - General Family Medicine 08/02/18 05/30/25 Claire Sellers MD [address] [place] [address] PCP - General Family Medicine 05/31/25 documented as of this encounter
--- OUTSIDE RECORDS SUMMARY | 2025-06-06 18:14 | XMS_ITS | Encounter Summary ---
Author Organization [employer] Address [address] [place] [address] [address] [place] [address] Care Team Providers Care International Affairs Vice President Name Role Phone Juliana Lyn MD Primary Care Provider [phone] Claire Sellers MD Primary Care Provider [phone] Encounter Details Date Type Department Care Team (Latest Contact Info) Description 02/11/2022 Abstract [facility] CON[facility] Dental, Provider, DDS Social History Tobacco [...] on filedocumented in this encounter Care Teams International Affairs Vice President Relationship Specialty Start Date End Date Juliana Lyn MD [address] [place] [phone] PCP - General Family Medicine 08/02/18 05/30/25 Claire Sellers MD [address] [place] [phone] PCP - General Family Medicine 05/31/25 documented as of this encounter
[2025-06-06 18:31] LABS: Anion Gap 13 (12-20); Blood Urea Nitrogen 17 mg/dL (9-16); Calcium 8.9 mg/dL (8.4-10.2); Carbon Dioxide 29 mmol/L (22-29); Chloride 104 mmol/L (96-108); Estimated Glomerular Filt Rate > 60; Potassium 3.8 mmol/L (3.3-5.1); Sodium 142 mmol/L (135-145); Uric Acid 9.3 mg/dL (3.4-7.0)
[2025-06-06 18:34] LABS: Alanine Aminotransferase 26 U/L (0-40); Albumin Level 4.1 g/dL (3.5-5.0); Alkaline Phosphatase 91 U/L (39-117); Anion Gap 12 (12-20); Aspartate Amino Transferase 63 U/L (5-37); Blood Urea Nitrogen 16 mg/dL (9-16); Calcium 9.0 mg/dL (8.4-10.2); Carbon Dioxide 30 mmol/L (22-29); Chloride 104 mmol/L (96-108); Cholesterol 134 mg/dL (<200); Estimated Glomerular Filt Rate > 60; HDL Cholesterol 35 mg/dL (>40); Potassium 3.7 mmol/L (3.3-5.1); Sodium 142 mmol/L (135-145); Total Protein 6.4 g/dL (6.5-8.0); Triglycerides 258 mg/dL (<150)
[2025-06-06 18:41] LABS: Hematocrit 39.0 % (42.0-52.0); Hemoglobin 13.7 g/dl (14.0-18.0); Imm Gran Abs Auto 0.02 X10*3/uL (0.00-0.03); Imm Gran Pct Auto 0.3 % (0.0-0.4); Lymphocytes Absolute Auto 2.8 X10*3/uL (1.2-4.9); Mean Corpuscular HGB Conc 35.1 g/dl (31.0-36.0); Mean Corpuscular Hemoglobin 33.1 pg (27.0-33.0); Mean Corpuscular Volume 94.2 fL (80.0-98.0); NRBC Abs Auto 0.000 X10*3/uL (0.0-0.012); NRBC Pct Auto 0.0 /100WBC (0.0-0.2); Platelet Count 192 X10*3/uL (160-400); Red Blood Count 4.14 X10*6/uL (4.60-5.80); White Blood Count 7.0 X10*3/uL (4.8-10.8)
== END 2025-06-06 15:16 | disposition home or self-care (01) ==
LOC: HO.CHCLDS 15:15
PROVIDERS: PCP Student in an Organized Health Care Education/Training Program; Visit Provider Student in an Organized Health Care Education/Training Program
DX: M1A.09X0 Idiopathic chronic gout, multiple sites, without tophus (tophi) (principal); I10 Essential (primary) hypertension; Z79.899 Other long term (current) drug therapy
CPT/HCPCS: 36415; 80048; 80053; 80061; 80076; 82248; 84550; 85025

== ENCOUNTER 2025-07-09 14:48 | Outpatient (REF) | payer MEDICARE, MEDICAID, SELFPAY ==
[2025-07-09 19:12] LABS: Prostate Specific Antigen 3.10 ng/mL (<0.05-4.0)
--- OUTSIDE RECORDS SUMMARY | 2025-07-10 00:05 | XMS_ITS | Clinical Summary ---
Author Organization [employer] Address [address] [place] [address] 7 [place] [address] Care Team Providers Care Analysis Director Name Role Phone Claire Sellers MD Primary Care Provider [phone] Allergies Active Allergy Reactions Criticality Noted Date Comments Phenytoin 04/11/2019 Other reaction(s): hives Medications allopurinol (Zyloprim) 100 MG tabletIndication s:Gout, unspecified cause, unspecified chronicity, unspecified site TAKE ONE TABLET BY MOUTH TWICE A DAY 60 tablet 5 07/28/2023 Active albuterol 108 (90 Base) MCG/ACT inhaler Inhale 2 puffs every 4 (four) hours if needed for wheezing. 18 g 12/13/2023 Active amLODIPine (Norvasc) 10 MG tablet TAKE ONE TABLET BY MOUTH EVERY DAY IN THE MORNING 30 tablet 11 11/13/2024 Active Allergy Relief 10 MG tablet TAKE ONE TABLET BY MOUTH EVERY DAY IN THE MORNING 90 tablet 3 11/13/2024 Active atorvastatin (Lipitor) 40 MG tabletIndication s:Hypercholester emia TAKE ONE TABLET BY MOUTH EVERY DAY AT BEDTIME 90 tablet 3 12/27/2024 Active cyanocobalamin (Vitamin B-12) 1000 MCG tablet TAKE ONE TABLET BY MOUTH EVERY DAY 90 tablet 3 12/27/2024 Active levETIRAcetam (Keppra) 750 MG tabletIndication s:Seizures (CMS/HCC) (HCC) TAKE ONE TABLET BY MOUTH TWICE A DAY 60 tablet 5 02/26/2025 Active chlorthalidone (Hygroton) 25 MG tablet Take 1 tablet (25 mg) by mouth Once per day. 30 tablet 11 05/09/2025 05/09/20 26 Active Active Problems Problem Noted Date Diagnosed Date Seizure (CMS/HCC) 07/10/2024 Benign hypertension 05/20/2015 07/02/2023 Gastroesophageal reflux disease 09/11/2013 07/02/2023 Heart murmur 07/14/2013 07/02/2023 Encounters Date Type Department Care Team Description 07/06/2025 Results Follow-Up [facility] [address] [place] [address] Claire Sellers MD Basic Metabolic Panel, Uric acid, CBC auto differential 06/06/2025 Orders Only [facility] [address] [place] [address] Juliana Lyn MD 05/09/2025 9:30 AM EDT Office Visit [facility] [address] [place] [address] Juliana Lyn MD Generalized edema (Primary Dx); Benign hypertension; Seizure (CMS/HCC) (HCC); Gastroesophageal reflux disease without esophagitis; Encounter for annual wellness visit; Encounter for immunization 05/09/2025 Travel 05/08/2025 Telephone [facility] [address] [place] [address] Juliana Lyn MD Chart Prep 05/07/2025 Travel 05/01/2025 Patient Outreach [facility] [address] [place] [address] Juliana Lyn MD Pre-visit Planning (UTOH screening unable to complete. ) from Last [...] 05/09/2025 9:46 AM EDT Plan of Treatment Upcoming Encounters Date Type Department Care Team (Late st Contact Info) Description 08/10/2025 11:15 AM EST Office Visit [facility] [address] [place] [address] Claire Sellers MD [address] [place] [address] Health Maintenance Due Date Last Done Comments [...] Diagnosis Comments CBC WITH AUTO DIFFERENTIAL Routine 06/06/2025 3:18 PM EST URIC ACID Routine 06/06/2025 3:18 PM EST BASIC METABOLIC PANEL Routine 06/06/2025 3:18 PM EST HEPATIC FUNCTION PANEL Routine 05/09/2025 10:24 AM EDT Benign hypertension LIPID PANEL, STANDARD Routine 05/09/2025 10:24 AM EDT Benign hypertension BASIC METABOLIC PANEL Routine 05/09/2025 10:24 AM EDT Benign hypertension from Last 3 Months Results * (ABNORMAL) CBC auto differential (06/06/2025 3:18 PM EST) White Blood Count 7.0 4.8 - 10.8 X10*3/uL [facility] Red Blood Count 4.14(L) 4.60 - 5.80 X10*6/uL [facility] Hemoglobin 13.7(L) 14.0 - 18.0 g/dl [facility] Hematocrit 39.0(L) 42.0 - 52.0 % [facility] Mean Corpuscular Volume 94.2 80.0 - 98.0 fL [facility] Mean Corpuscular Hemoglobin 33.1(H) 27.0 - 33.0 pg [facility] Mean Corpuscular HGB Conc 35.1 31.0 - 36.0 g/dl [facility] Red Cell Distribution Width 13.2 11.0 - 16.0 % [facility] Platelet Count 192 160 - 400 X10*3/uL [facility] Mean Platelet Volume 11.4 9.4 - 12.4 fL [facility] Neutrophils Percent Auto 38.2(L) 45 - 73 % [facility] Imm Gran Pct Auto 0.3 0.0 - 0.4 % [facility] Lymphocytes Percent Auto 39.4 20 - 40 % [facility] Monocytes Percent Auto 7.0 2 - 11 % [facility] Eosinophils Percent Auto 14.1(H) 0 - 4 % [facility] Basophils Percent Auto 1.0 0 - 2 % [facility] NRBC Pct Auto 0.0 0.0 - 0.2 /100WBC [facility] Neutrophils Absolute Auto 2.7 2.0 - 8.3 x10*3/uL [facility] Imm Gran Abs Auto 0.02 0.00 - 0.03 X10*3/uL [facility] Lymphocytes Absolute Auto 2.8 1.2 - 4.9 X10*3/uL [facility] Monocytes Absolute Auto 0.5 0.1 - 1.2 X10*3/uL [facility] Eosinophils Absolute Auto 1.0(H) 0.0 - 0.4 X10*3/uL [facility] Basophils Absolute Auto 0.1 0.0 - 0.2 X10*3/uL [facility] NRBC Abs Auto 0.000 0.0 - 0.012 X10*3/uL [facility] 06/06/2025 3:18 PM EST 06/06/2025 6:09 PM EST us Generic External Data Provider LAB BLOOD ORDERAB LES Final Result Performing Organization Address City/[facility]/ZIP Co de Phone Number [facility] [address] [place] [address] [phone] * (ABNORMAL) Uric acid (06/06/2025 3:18 PM EST) Uric Acid 9.3(H) 3.4 - 7.0 mg/dL [facility] 06/06/2025 3:18 PM EST 06/06/2025 6:09 PM EST us Generic External Data Provider LAB BLOOD ORDERAB LES Final Result Performing Organization Address [facility] de Phone Number [facility] [address] [place] [phone] * (ABNORMAL) Basic Metabolic Panel (06/06/2025 3:18 PM EST) Only the most recent of2 resultswithin the time period is included. Sodium 142 135 - 145 mmol/L [facility] Potassium 3.8 3.3 - 5.1 mmol/L [facility] Chloride 104 96 - 108 mmol/L [facility] Carbon Dioxide 29 22 - 29 mmol/L [facility] Anion Gap 13 12 - 20 [facility] Urea Nitrogen (BUN) 17(H) 9 - 16 mg/dL [facility] Creatinine, Serum 1.07 0.5 - 1.4 mg/dL [facility] Estimated Glomerular Filt Rate >60 [facility] Comment:Chronic Kidney Disea se: Estimated GFR < 60 mL/min/[id number] Kidney Disease: Estimated GFR < 15 mL/min/1.73m2 Glucose 132(H) 60 - 115 mg/dL [facility] Calcium 8.9 8.4 - 10.2 mg/dL [facility] 06/06/2025 3:18 PM EST 06/06/2025 6:09 PM EST us Juliana Lyn MD LAB BLOOD ORDERABLES Final Resul t Performing Organization Address City/[facility]/ZIP Co de Phone Number [facility] [address] [place] [address] [phone] * (ABNORMAL) Hepatic Function Panel (05/09/2025 10:24 AM EDT) Bilirubin, Total 1.5(H) 0.0 - 1.0 mg/dL [facility] Bilirubin, Direct 0.5 0.0 - 0.5 mg/dL [facility] Aspartate Amino Transferase 25 5 - 37 U/L [facility] Alanine Aminotransferase 22 0 - 40 U/L [facility] Total Protein 6.1(L) 6.5 - 8.0 g/dL [facility] Albumin Level 4.1 3.5 - 5.0 g/dL [facility] Alkaline Phosphatase 91 39 - 117 U/L [facility] Blood Venous blood specimen / Unknown 05/09/2025 10:24 AM EDT 05/09/2025 2:18 PM EDT Juliana Lyn MD LAB BLOOD ORDERABLES Final Resul t Performing Organization Address [facility] Co de Phone Number [facility] [address] [place] [phone] * (ABNORMAL) Lipid Panel, Standard (05/09/2025 10:24 AM EDT) Triglycerides 75 <150 mg/dL [facility] Comment:Desirable Triglyceri de: less than 150 mg/dLBorderline High Triglyceride 150-199 mg/dLHigh Triglyceride: 200-499 mg/dLVery High Triglyceride: greater than or equal to 5OO mg/dL Cholesterol 115 <200 mg/dL [facility] Comment:Desirable Cholestero l: less than 200 mg/dLBorderline High Cholesterol: 200-239 mg/dLHigh Cholesterol: greater than 239 mg/dL LDL Cholesterol Calculated 62 <100 mg/dL [facility] Comment:Desirable LDL: less than 100 mg/dLNear Optimal/Above Optimal LDL: 110- 129 mg/dLBorderline High LDL: 130-159 mg/dLHigh LDL: 160-189 mg/dLVery High LDL: greater than or equal to 190 mg/dL HDL Cholesterol 38(L) >40 mg/dL [facility] Comment:Desirable HDL: great er than 40 mg/dL Note: This HDL assay may give artificially low results in patients with liver disease. Blood Venous blood specimen / Unknown 05/09/2025 10:24 AM EDT 05/09/2025 2:18 PM EDT us Juliana Lyn MD LAB BLOOD ORDERABLES Final Resul t [facility] [address] [place] [address] [phone] from Last [address] [place] [address] [place] [phone] [facility] STANDARD Care Teams Analysis Director Relationship Specialty Start Date End Date Claire Sellers MD [address] [place] [phone] PCP - General Family Medicine 05/31/25
--- OUTSIDE RECORDS SUMMARY | 2025-07-10 00:05 | XMS_ITS | Encounter Summary ---
Author Organization [employer] Address [address] [facility] 7 [place] [address] Care Team Providers Care Station Chief Name Role Phone Claire Sellers MD Primary Care Provider Encounter Details Date Type Department Care Team (Latest Contact Info) Description 07/06/2025 Results Follow-Up [facility] [address] [place] [address] Claire Sellers MD [address] [place] [address] Basic Metabolic Panel, Uric acid, CBC auto differential Social History Tobacco Use Types Packs/Day Years [...] as of this encounter Miscellaneous Notes * Result Encounter Note - Claire Sellers MD - 07/06/2025 11:48 AM EST Lab order by outside provider. At this moment, noted elevated uric acid and eosinophilia, has followup with this provider in August 2025. documented in this encounter Plan of Treatment Upcoming Encounters Date Type Department Care Team (Late st Contact Info) Description 08/10/2025 11:15 AM EST Office Visit [facility] [address] [place] [address] Claire Sellers MD [address] [place] [address] documented as of this encounter Visit Diagnoses Not on filedocumented in this encounter Additional Health Concerns Assessment Noted Time PHQ-9 Depression Total Score: 3 05/09/20 25 9:48 AM EDT documented as of this encounter Care Teams Station Chief Relationship Specialty Start Date End Date Claire Sellers MD [address] [place] [address] PCP - General Family Medicine 05/31/25 documented as of this encounter
--- OUTSIDE RECORDS SUMMARY | 2025-07-10 00:05 | XMS_ITS | Encounter Summary ---
Author Organization [employer] Address [address] [place] [address] 7 [place] [address] Care Team Providers Care Manager Of Product Name Role Phone Juliana Lyn MD Primary Care Provider [phone] Claire Sellers MD Primary Care Provider [phone] Reason for Visit * Reason Onset Date Comments Hospital Follow-up 09/22/2023 Encounter Details Date Type Department Care Team ([facility] st Contact Info) Description 09/22/2023 Telephone [facility] [address] [place] [address] Juliana Lyn MD [address] [place] [address] Hospital Follow-up Social History Tobacco Use Types [...] message above. Please contact for scheduling at [phone] * Telephone Encounter - Sriram Perez - 09/22/2023 2:24 PM EST Tc from pt requesting a F appt. 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 Please contact pt @ [phone] documented in this encounter Plan of Treatment Upcoming Encounters Date Type Department Care Team ([facility] st Contact Info) Description 08/10/2025 11:15 AM EST Office Visit [facility] [address] [place], [place] [phone] Claire Sellers MD [address] [place] [address] documented as of this encounter Visit Diagnoses Not on filedocumented in this encounter Additional Health Concerns Assessment Noted Time PHQ-9 Depression Total Score: 0 07/02/20 23 10:54 AM EST documented as of this encounter Care Teams Manager Of Product Relationship Specialty Start Date End Date Juliana Lyn MD [address] [place] [address] PCP - General Family Medicine 08/02/18 05/30/25 Claire Sellers MD [address] [place] [address] PCP - General Family Medicine 05/31/25 documented as of this encounter
--- OUTSIDE RECORDS SUMMARY | 2025-07-10 00:05 | XMS_ITS | Encounter Summary ---
Author Organization [employer] [facility] Address [address] [place] [address] Care Team Providers Care Hand Ii Tube Bender Name Role Phone Juliana Lyn MD Primary Care Provider [phone] Claire Sellers MD Primary Care Provider Encounter Details Date Type Department Care Team (Latest Contact Info) Description 02/11/2022 Abstract [facility]S Dental, Provider, DDS Social History Tobacco Use Types Packs/Day Years Used Date Smoking Tobacco: Never Assessed Sex and Gender Information Value Date Recorded Sex Assigned at Male 06/01/2022 10:25 AM EDT Legal Sex Male 10:25 AM EDT Gender Identity Male 06/01/2022 10:25 AM EDT Sexual Orientation Straight 06/01/2022 10 :25 AM EDT documented as of this encounter Plan of Treatment Upcoming Encounters Date Type Department Care Team (Late st Contact Info) Description 08/10/2025 11:15 AM EST Office Visit [facility] [address] [place] [address] Claire Sellers MD [address] [place] [address] documented as of this encounter Visit Diagnoses Not on filedocumented in this encounter Care Teams Hand Ii Tube Bender Relationship Specialty Start Date End Date Juliana Lyn MD [address] [place] [address] PCP - General Family Medicine 08/02/18 05/30/25 Claire Sellers MD [address] [place] [address] PCP - General Family Medicine 05/31/25 documented as of this encounter
--- OUTSIDE RECORDS SUMMARY | 2025-07-10 00:05 | XMS_ITS | Encounter Summary ---
Author Organization [employer] [facility] Address [address] [place] [address] Care Team Providers Care Blood Bank Attendant Name Role Phone Juliana Lyn MD Primary Care Provider [phone] Claire Sellers MD Primary Care Provider [phone] Encounter Details Date Type Department Care Team (Latest Contact Info) Description 11/15/2018 Abstract [facility] Dental, Provider, DDS Social History Tobacco [...] Description 08/10/2025 11:15 AM EST Office Visit [facility] [address] [place] [address] Claire Sellers MD [address] [place] [address] documented as of this encounter Visit Diagnoses Not on filedocumented in this encounter Care Teams Blood Bank Attendant Relationship Specialty Start Date End Date Juliana Lyn MD [address] [place] [address] PCP - General Family Medicine 08/02/18 05/30/25 Claire Sellers MD [address] [place] [address] PCP - General Family Medicine 05/31/25 documented as of this encounter
--- OUTSIDE RECORDS SUMMARY | 2025-07-10 00:05 | XMS_ITS | Encounter Summary ---
Author Organization [employer] Address [address] [place] [address] 7 [place] [address] Care Team Providers Care Sanding Machine Operator Or Tender Name Role Phone Juliana Lyn MD Primary Care Provider [phone] Claire Sellers MD Primary Care Provider [phone] Reason for Visit * Reason Onset Date Comments Nurse Triage 09/29/2023 Encounter Details Date Type Department Care Team (Late st Contact Info) Description 09/29/2023 Telephone [facility] [address] [place] [address] Juliana Lyn MD [address] [place] [address] Nurse Triage Social History Tobacco Use Types [...] the past 12 months, has t he [employer], gas, oil or water [employer] threatened to shut off services in your [...] 09/29/2023 10:27 AM EST Triage call with [facility] [place] [id number] Pt gives permission for son in [place] [...] advised to encourage increased fluids, bed rest, tylenol / motrin for discomfort. Apt in [facility] 09/30/23 @ 220p. Insurance is verified as [...] Description 08/10/2025 11:15 AM EST Office Visit [facility] [address] [place] [address] Claire Sellers MD [address] [place] [address] documented as of this encounter Visit Diagnoses Not on filedocumented in this encounter Additional Health Concerns Assessment Noted Time PHQ-9 Depression Total Score: 0 07/02/20 23 10:54 AM EST documented as of this encounter Care Teams Sanding Machine Operator Or Tender Relationship Specialty Start Date End Date Juliana Lyn MD [address] [place] [address] PCP - General Family Medicine 08/02/18 05/30/25 Claire Sellers MD [address] [place] [address] PCP - General Family Medicine 05/31/25 documented as of this encounter
--- OUTSIDE RECORDS SUMMARY | 2025-07-10 00:06 | XMS_ITS | Encounter Summary ---
Author Organization [employer] [facility] Address [address] [place] [address] Care Team Providers Care Hammerer Name Role Phone Juliana Lyn MD Primary Care Provider [phone] Claire Sellers MD Primary Care Provider [phone] Reason for Visit * Reason Comments Med Refill Encounter Details Date Type Department Care Team (Late Contact Info) Description 01/12/2023 Refill [facility] [address] [place], [place] [phone] Juliana Lyn MD [address] [place], [place] [phone] Hypercholesteremia; Gout, unspecified cause, unspecified chronicity, unspecified [...] Encounters Date Type Department Care Team (Late Contact Info) Description 08/10/2025 11:15 AM EST Office Visit [facility] [address] [place], [place] [phone] Claire Sellers MD [address] [place], [place] [phone] documented as of this encounter Visit Diagnoses Diagnosis Hypercholesteremia Pure hypercholesterolemia Gout, unspecified cause, unspecified chronicity, unspecified site documented in this encounter Care Teams Hammerer Relationship Specialty Start Date End Date Juliana Lyn MD [address] [place] [address] PCP - General Family Medicine 08/02/18 05/30/25 Claire Sellers MD [address] [place] [address] PCP - General Family Medicine 05/31/25 documented as of this encounter
--- OUTSIDE RECORDS SUMMARY | 2025-07-10 00:06 | XMS_ITS | Encounter Summary ---
Author Organization [employer] Address [address] [place] [address] [address] [place] [address] Care Team Providers Care Customer Services Coordinator Name Role Phone Juliana Lyn MD Primary Care Provider [phone] Claire Sellers MD Primary Care Provider [phone] Encounter Details Date Type Department Care Team (Late st Contact Info) Description 01/05/2023 Orders Only [facility] [address] [place] [address] Annette Brian LPN Social History Tobacco Use [...] Description 08/10/2025 11:15 AM EST Office Visit [facility] [address] [place], [place] [phone] Claire Sellers MD [address] [place], [place] [phone] documented as of this encounter Procedures Procedure Name Priority Date/Time Associated Diagnosis Comments CBC WITH AUTO DIFFERENTIAL Routine 11/05/2023 2:28 PM EDT URIC ACID Routine 11/05/2023 2:28 PM EDT BASIC METABOLIC PANEL Routine 11/05/2023 2:28 PM EDT documented in this encounter Results * Uric acid (11/05/2023 2:28 PM EDT) Uric Acid 5.6 3.4 - 7.0 mg/dL [facility] 11/05/2023 2:28 PM EDT 11/05/2023 4:06 PM EDT us Generic External Data Provider LAB BLOOD ORDERAB LES Final Result [facility] [address] [place] [address] [phone] * (ABNORMAL) Basic Metabolic Panel (11/05/2023 2:28 PM EDT) Sodium 145 135 - 145 mmol/L [facility] Potassium 4.4 3.3 - 5.1 mmol/L [facility] Chloride 111(H) 96 - 108 mmol/L [facility] Carbon Dioxide 26 22 - 29 mmol/L [facility] Anion Gap 12 12 - 20 [facility] Urea Nitrogen (BUN) 16 9 - 16 mg/dL [facility] Creatinine, Serum 0.87 0.5 - 1.4 mg/dL [facility] Estimated Glomerular Filt Rate >60 [facility] Comment:NOTE: For -Am erican individuals, multiply the result by 1.210.Chronic Kidney Disease: Estimated GFR < 60 mL/min/[id number] Kidney Disease: Estimated GFR < 15 mL/min/1.73m2 Glucose 97 60 - 115 mg/dL [facility] Calcium 9.1 8.4 - 10.2 mg/dL [facility] 11/05/2023 2:28 PM EDT 11/05/2023 4:06 PM EDT us Generic External Data Provider LAB BLOOD ORDERAB LES Final Result [facility] [address] [place] [phone] * (ABNORMAL) CBC auto differential (11/05/2023 2:28 PM EDT) White Blood Count 8.2 4.8 - 10.8 X10*3/uL [facility] Red Blood Count 4.30(L) 4.60 - 5.80 X10*6/uL [facility] Hemoglobin 14.3 14.0 - 18.0 g/dl [facility] Hematocrit 41.3(L) 42.0 - 52.0 % [facility] Mean Corpuscular Volume 96.0 80.0 - 98.0 fL [facility] Mean Corpuscular Hemoglobin 33.3(H) 27.0 - 33.0 pg [facility] Mean Corpuscular HGB Conc 34.6 31.0 - 36.0 g/dl [facility] Red Cell Distribution Width 13.2 11.0 - 16.0 % [facility] Platelet Count 205 160 - 400 X10*3/uL [facility] Mean Platelet Volume 11.4 9.4 - 12.4 fL [facility] Neutrophils Percent Auto 37.6(L) 45 - 73 % [facility] Imm Gran Pct Auto 0.2 0.0 - 0.4 % [facility] Lymphocytes Percent Auto 35.0 20 - 40 % [facility] Monocytes Percent Auto 7.0 2 - 11 % [facility] Eosinophils Percent Auto 19.2(H) 0 - 4 % [facility] Basophils Percent Auto 1.0 0 - 2 % [facility] NRBC Pct Auto 0.0 0.0 - 0.2 /100WBC [facility] Neutrophils Absolute Auto 3.1 2.0 - 8.3 x10*3/uL [facility] Imm Gran Abs Auto 0.02 0.00 - 0.03 X10*3/uL [facility] Lymphocytes Absolute Auto 2.9 1.2 - 4.9 X10*3/uL [facility] Monocytes Absolute Auto 0.6 0.1 - 1.2 X10*3/uL [facility] Eosinophils Absolute Auto 1.6(H) 0.0 - 0.4 X10*3/uL [facility] Basophils Absolute Auto 0.1 0.0 - 0.2 X10*3/uL [facility] NRBC Abs Auto 0.000 0.0 - 0.012 X10*3/uL [facility] 11/05/2023 2:28 PM EDT 11/05/2023 4:06 PM EDT us Generic External Data Provider LAB BLOOD ORDERAB LES Final Result Performing Organization Address City/State/[facility] Co de Phone Number [facility] [address] [place] [phone] documented in this encounter Visit Diagnoses Not on filedocumented in this encounter Care Teams Customer Services Coordinator Relationship Specialty Start Date End Date Juliana Lyn MD [address] [place] [address] PCP - General Family Medicine 08/02/18 05/30/25 Claire Sellers MD [address] [place] [address] PCP - General Family Medicine 05/31/25 documented as of this encounter
--- OUTSIDE RECORDS SUMMARY | 2025-07-10 00:06 | XMS_ITS | Encounter Summary ---
Author Organization [employer] Address [address] [place] [address] Care Team Providers Care Rn Private Duty Name Role Phone Juliana Lyn MD Primary Care Provider [phone] Claire Sellers MD Primary Care Provider [phone] Reason for Visit * Reason Comments Med Refill Encounter Details Date Type Department Care Team (Late st Contact Info) Description 03/08/2023 Refill [facility] [address] [place], [place] [phone] Juliana Lyn MD [address] [place], [place] [phone] Social History Tobacco Use Types Packs/Day Years [...] Description 08/10/2025 11:15 AM EST Office Visit [facility] [address], [place] [phone] Claire Sellers MD [address] [place], [place] [phone] documented as of this encounter Visit Diagnoses Not on filedocumented in this encounter Care Teams Rn Private Duty Relationship Specialty Start Date End Date Juliana Lyn MD [address] [place] [address] PCP - General Family Medicine 08/02/18 05/30/25 Claire Sellers MD [address] [place] [address] PCP - General Family Medicine 05/31/25 documented as of this encounter
== END 2025-07-09 14:49 | disposition home or self-care (01) ==
LOC: HO.CHCLDS 14:48
PROVIDERS: Visit Provider Urology
DX: R97.20 Elevated prostate specific antigen [PSA] (principal); Z12.5 Encounter for screening for malignant neoplasm of prostate
CPT/HCPCS: 36415; 84153

== ENCOUNTER 2025-07-20 14:48 | Outpatient (AMB) | payer MEDICARE, MEDICAID, SELFPAY ==
--- NOTE | 2025-07-20 14:53 | A.OFFVIS_ITS ---
Intake Visit Reasons: 1Y PVR/PSA(set) Intake Note: Reason for Visit: 1Y PSA/PVR Follow Up Urology Meds: Tamsulosin, Finasteride Blood Thinners: Eliquis Labs: PSA 3.10 07/09/25 Imaging: None Last PVR: 36ml Parachute Taper Required: No Accompanied by: son Allergies bell (CHERRIES) Allergy (Unknown, Verified 07/20/25 14:56) RASH phenytoin (From DILANTIN) Allergy (Unknown, Verified 07/20/25 14:56) HIVES strawberry (STRAWBERRY) Allergy (Unknown, Verified 07/20/25 14:56) RASH HPI Comments Details: Carina is a pleasant [place] male. He is a patient of Dr. Lyn. He is seen for the following urologic conditions - urethral stricture - lower urinary tract symptoms Translation provided through son Twelve month follow-up Low PVR and 50 cc Remains on combination tamsulosin with finasteride Lower urinary tract symptoms Nocturia 2-3 Prior history of distal urethral stricture which has been dilated by patient with intermittent self catheterization. TURP 2014 PSA 01/19 11, 09/23 3.5, 04/23 3.0, 07/16 3.1 Cystoscopy 06/22 prior TURP Current medications tamsulosin and finasteride PFSH Medical History Ischemic stroke Essential hypertension Atherosclerotic cardiovascular disease Non-rheumatic aortic regurgitation Gout Surgical History History of total right knee replacement Family History Father No problems noted. Mother No problems noted. Social History Alcohol intake: never Patient Tobacco Use Status: Never used Tobacco Review of Systems Const Denies chills and Denies fever(s) Card Reports no additional complaints and Denies syncope Resp Denies cough GI Denies abdominal pain and Denies heartburn Reports as per HPI and Denies change in libido Neuro Denies syncope Psych Denies change in libido Endo Denies change in libido Physical Exam Const General: cooperative, healthy appearing, comfortable and no acute distress Orientation/consciousness: patient oriented x3 HEENT Face and sinus: Yes normal facial exam Mouth: moist mucous membranes Neck Neck: Yes normal visual inspection, Yes full ROM and Yes trachea midline Chest Chest palpation & inspection: normal inspection of the chest Resp Effort & Inspection: normal respiratory effort, able to speak in complete sentences and no respiratory distress GI Inspection: Yes normal to inspection Back/Spine/Pelvis Cervical Spine: normal cervical lordosis Thoracic/Lumbar Spine: thoracic and lumbar spine normal to inspection Skin General skin exam: no rashes or lesions noted Neuro General: patient oriented x3, gait normal, tone normal and moves all extremities Extrem General: Yes normal to inspection and Yes capillary refill normal Assessment & Plan Assessment & Plan (1) BPH w urinary obs/LUTS: Code(s): N40.1 - Benign prostatic hyperplasia with lower urinary tract symptoms; N13.8 - Other obstructive and reflux uropathy Category: Medical (2) Urethral stricture: Code(s): N35.919 - Unspecified urethral stricture, male, unspecified site Category: Medical (3) Elevated PSA: Code(s): R97.20 - Elevated prostate specific antigen [PSA] Category: Medical Plan Twelve month follow-up Orders: Orders Prostate Specific Antigen 07/09/25 R97.20 - Elevated prostate specific antigen [PSA] Patient Instructions: This note is constructed using voice recognition software. While every effort has been made to ensure accuracy sheep or calf grader errors may have been included. Imaging studies, laboratory and physical exam results were discussed and reviewed in detail. No major barriers to patient understanding were identified. An opportunity to ask questions regarding the treatment plan was provided. All questions were answered. The patient expressed understanding and agreement with the above treatment plan. The patient is aware they should contact our office by phone for worsening of their current condition or the appearance of new urologic symptoms. Compliance is encouraged with any medications and followup testing that is ordered. It is a privilege to participate in the urologic care of your patient. If you have any questions or concerns regarding treatment for the above conditions, or other urologic issues, please do not hesitate to contact me. The office telephone contact is [phone]. Sincerely, Dr Stephane Bryan MD, [facility] - Urology Compassionate Specialist Care for the Genitourinary System Coding Level of Care Code Est Pt Level 4 (81966) Diagnoses BPH w urinary obs/LUTS N40.1; N13.8 Urethral stricture N35.919 Elevated PSA R97.20
--- OUTSIDE RECORDS SUMMARY | 2025-07-20 16:10 | XMS_ITS | Encounter Summary ---
Author Organization [employer] [facility] Address [address] [place] [address] Care Team Providers Care Entomology Professor Name Role Phone Juliana Lyn MD Primary Care Provider [phone] Claire Sellers MD Primary Care Provider [phone] Encounter Details Date Type Department Care Team (Latest Contact Info) Description 11/15/2018 Abstract [facility] CONVERSIONS Dental, Provider, DDS Social History [...] Description 08/10/2025 11:15 AM EST Office Visit [facility] [address] [place] [address] Claire Sellers MD [address] [place] [address] documented as of this encounter Visit Diagnoses Not on filedocumented in this encounter Care Teams Entomology Professor Relationship Specialty Start Date End Date Juliana Lyn MD [address] [place] [address] PCP - General Family Medicine 08/02/18 05/30/25 Claire Sellers MD [address] [place] [address] PCP - General Family Medicine 05/31/25 documented as of this encounter
--- OUTSIDE RECORDS SUMMARY | 2025-07-20 16:10 | XMS_ITS | Encounter Summary ---
Author Organization [employer] Address [address] [place] [address] 7 [place] [address] Care Team Providers Care Couples Therapist Name Role Phone Juliana Lyn MD Primary Care Provider [phone] Claire Sellers MD Primary Care Provider [phone] Encounter Details Date Type Department Care Team (Late st Contact Info) Description 01/05/2023 Orders Only [facility] [address] [place] [address] Annette Brian LPN Social History Tobacco Use [...] Description 08/10/2025 11:15 AM EST Office Visit [facility] [address] [place], [place] [phone] Claire Sellers MD [address] [place], [place] [phone] documented as of this encounter Procedures Procedure Name Priority Date/Time Associated Diagnosis Comments CBC WITH AUTO DIFFERENTIAL Routine 11/05/2023 2:28 PM EDT URIC ACID Routine 11/05/2023 2:28 PM EDT BASIC METABOLIC PANEL Routine 11/05/2023 2:28 PM EDT documented in this encounter Results * Uric acid (11/05/2023 2:28 PM EDT) Uric Acid 5.6 3.4 - 7.0 mg/dL [facility] 11/05/2023 2:28 PM EDT 11/05/2023 4:06 PM EDT us Generic External Data Provider LAB BLOOD ORDERAB LES Final Result [facility] [address] [place] [address] [phone] * (ABNORMAL) Basic Metabolic Panel (11/05/2023 2:28 PM EDT) Sodium 145 135 - 145 mmol/L [facility] Potassium 4.4 3.3 - 5.1 mmol/L [facility] Chloride 111(H) 96 - 108 mmol/L [facility] Carbon Dioxide 26 22 - 29 mmol/L [facility] Anion Gap 12 12 - [address] [facility] Urea Nitrogen (BUN) 16 9 - 16 mg/dL [facility] Creatinine, Serum 0.87 0.5 - 1.4 mg/dL [facility] Estimated Glomerular Filt Rate >[address] [facility] Comment:NOTE: For -Am erican individuals, multiply the result by 1.210.Chronic Kidney Disease: Estimated GFR < 60 mL/min/[id number] Kidney Disease: Estimated GFR < 15 mL/min/1.73m2 Glucose 97 60 - 115 mg/dL [facility] Calcium 9.1 8.4 - 10.2 mg/dL [facility] 11/05/2023 2:28 PM EDT 11/05/2023 4:06 PM EDT us Generic External Data Provider LAB BLOOD ORDERAB LES Final Result [facility] [address] [place] [address] [phone] * (ABNORMAL) CBC auto differential (11/05/2023 2:28 PM EDT) White Blood Count 8.2 4.8 - 10.8 X10*3/uL [facility] Red Blood Count 4.30(L) 4.60 - 5.80 X10*6/uL [facility] Hemoglobin 14.3 14.0 - 18.0 g/dl [facility] Hematocrit 41.3(L) 42.0 - 52.0 % [facility] Mean Corpuscular Volume 96.0 80.0 - 98.[address] [facility] Mean Corpuscular Hemoglobin 33.3(H) 27.0 - 33.[address] [facility] Mean Corpuscular HGB Conc 34.6 31.0 - 36.0 g/dl [facility] Red Cell Distribution Width 13.2 11.0 - 16.0 % [facility] Platelet Count 205 160 - 400 X10*3/uL [facility] Mean Platelet Volume 11.4 9.4 - 12.[address] [facility] Neutrophils Percent Auto 37.6(L) 45 - 73 % [facility] Imm Gran Pct Auto 0.2 0.0 - 0.4 % [facility] Lymphocytes Percent Auto 35.0 20 - 40 % [facility] Monocytes Percent Auto 7.0 2 - 11 % [facility] Eosinophils Percent Auto 19.2(H) 0 - 4 % [facility] Basophils Percent Auto 1.0 0 - 2 % [facility] NRBC Pct Auto 0.0 0.0 - 0.2 /100WBC [facility] Neutrophils Absolute Auto 3.1 2.0 - 8.3 x10*3/uL [facility] Imm Gran Abs Auto 0.02 0.00 - 0.03 X10*3/uL [facility] Lymphocytes Absolute Auto 2.9 1.2 - 4.9 X10*3/uL [facility] Monocytes Absolute Auto 0.6 0.1 - 1.2 X10*3/uL [facility] Eosinophils Absolute Auto 1.6(H) 0.0 - 0.4 X10*3/uL [facility] Basophils Absolute Auto 0.1 0.0 - 0.2 X10*3/uL [facility] NRBC Abs Auto 0.000 0.0 - 0.012 X10*3/uL [facility] 11/05/2023 2:28 PM EDT 11/05/2023 4:06 PM EDT us Generic External Data Provider LAB BLOOD ORDERAB LES Final Result Performing Organization Address City/State/[facility] Co de Phone Number [facility] [address] [place] [address] [phone] documented in this encounter Visit Diagnoses Not on filedocumented in this encounter Care Teams Couples Therapist Relationship Specialty Start Date End Date Juliana Lyn MD [address] [place] [address] PCP - General Family Medicine 08/02/18 05/30/25 Claire Sellers MD [address] [place] [address] PCP - General Family Medicine 05/31/25 documented as of this encounter
--- OUTSIDE RECORDS SUMMARY | 2025-07-20 16:10 | XMS_ITS | Encounter Summary ---
Author Organization [employer] Address [address] [place] [address] Care Team Providers Care Associate Store Manager Name Role Phone Juliana Lyn MD Primary Care Provider [phone] Claire Sellers MD Primary Care Provider [phone] Reason for Visit * Reason Comments Med Refill Encounter Details Date Type Department Care Team (Late st Contact Info) Description 03/08/[address] [facility] [address] [place], [place] [phone] Juliana Lyn MD [address] [place], [place] [phone] Social History Tobacco Use Types Packs/Day Years [...] Description 08/10/2025 11:15 AM EST Office Visit [facility] [address] [place], [place] [phone] Claire Sellers MD [address] [place], [place] [phone] documented as of this encounter Visit Diagnoses Not on filedocumented in this encounter Care Teams Associate Store Manager Relationship Specialty Start Date End Date Juliana Lyn MD [address] [place] [address] PCP - General Family Medicine 08/02/18 05/30/25 Claire Sellers MD [address] [place] [address] PCP - General Family Medicine 05/31/25 documented as of this encounter
--- OUTSIDE RECORDS SUMMARY | 2025-07-20 16:10 | XMS_ITS | Clinical Summary ---
Author Organization [employer] Address [address] [place] [address] 7 [place] [address] Care Team Providers Care Staff Assistant Name Role Phone Claire Sellers MD Primary Care Provider [phone] Allergies Active Allergy Reactions Criticality Noted Date [...] Department Care Team Description 07/06/2025 Results Follow-Up [facility] [address] [place] [phone] Claire Sellers MD Basic Metabolic Panel, Uric acid, CBC auto differential 06/06/2025 Orders Only [facility] [address] [place] [address] Juliana Lyn MD 05/09/2025 9:30 AM EDT Office Visit [facility] [address] [place] [address] Juliana Lyn MD Generalized edema (Primary Dx); Benign hypertension; Seizure (CMS/HCC) (HCC); Gastroesophageal reflux disease without esophagitis; Encounter for annual wellness visit; Encounter for immunization 05/09/2025 Travel 05/08/2025 Telephone [facility] [address] [place] [address] Juliana Lyn MD Chart Prep 05/07/2025 Travel 05/01/2025 Patient Outreach [facility] [address] [place] [address] Juliana Lyn MD Pre-visit Planning (ALOH screening unable to complete. ) from Last [...] 11:15 AM EST Office Visit [facility] [address] [place] [address] Claire Sellers MD [address] [place] [address] Health Maintenance Due Date Last Done Comments [...] Blood Count 7.0 4.8 - 10.8 X10*3/uL [facility] Red Blood Count 4.14(L) 4.60 - 5.80 X10*6/uL [facility] Hemoglobin 13.7(L) 14.0 - 18.0 g/dl [facility] Hematocrit 39.0(L) 42.0 - 52.0 % [facility] Mean Corpuscular Volume 94.2 80.0 - 98.0 fL [facility] Mean Corpuscular Hemoglobin 33.1(H) 27.0 - 33.0 pg [facility] Mean Corpuscular HGB Conc 35.1 31.0 - 36.0 g/dl [facility] Red Cell Distribution Width 13.2 11.0 - 16.0 % [facility] Platelet Count 192 160 - 400 X10*3/uL [facility] Mean Platelet Volume 11.4 9.4 - 12.4 fL [facility] Neutrophils Percent Auto 38.2(L) 45 - 73 % [facility] Imm Gran Pct Auto 0.3 0.0 - 0.4 % [facility] Lymphocytes Percent Auto 39.4 20 - 40 % [facility] Monocytes Percent Auto 7.0 2 - 11 % [facility] Eosinophils Percent Auto 14.1(H) 0 - 4 % [facility] Basophils Percent Auto 1.0 0 - 2 % [facility] NRBC Pct Auto 0.0 0.0 - 0.2 /100WBC [facility] Neutrophils Absolute Auto 2.7 2.0 - 8.3 x10*3/uL [facility] Imm Gran Abs Auto 0.02 0.00 - 0.03 X10*3/uL [facility] Lymphocytes Absolute Auto 2.8 1.2 - 4.9 X10*3/uL [facility] Monocytes Absolute Auto 0.5 0.1 - 1.2 X10*3/uL [facility] Eosinophils Absolute Auto 1.0(H) 0.0 - 0.4 X10*3/uL [facility] Basophils Absolute Auto 0.1 0.0 - 0.2 X10*3/uL [facility] NRBC Abs Auto 0.000 0.0 - 0.012 X10*3/uL [facility] 06/06/2025 3:18 PM EST 06/06/2025 6:09 PM EST us Generic External Data Provider LAB BLOOD ORDERAB LES Final Result Performing Organization Address City/[facility]/ZIP Co de Phone Number [facility] [address] [place] [address] [phone] * (ABNORMAL) Uric acid (06/06/2025 3:18 PM EST) Uric Acid 9.3(H) 3.4 - 7.0 mg/dL [facility] 06/06/2025 3:18 PM EST 06/06/2025 6:09 PM EST us Generic External Data Provider LAB BLOOD ORDERAB LES Final Result Performing Organization Address [facility] de Phone Number [facility] [address] [place] [phone] * (ABNORMAL) Basic Metabolic Panel (06/06/2025 3:18 PM EST) Only the most recent of2 resultswithin the time period is included. Sodium 142 135 - 145 mmol/L [facility] Potassium 3.8 3.3 - 5.1 mmol/L [facility] Chloride 104 96 - 108 mmol/L [facility] Carbon Dioxide 29 22 - 29 mmol/L [facility] Anion Gap 13 12 - 20 [facility] Urea Nitrogen (BUN) 17(H) 9 - 16 mg/dL [facility] Creatinine, Serum 1.07 0.5 - 1.4 mg/dL [facility] Estimated Glomerular Filt Rate >60 [facility] Comment:Chronic Kidney Disea se: Estimated GFR < 60 mL/min/[id number] Kidney Disease: Estimated GFR < 15 mL/min/1.73m2 Glucose 132(H) 60 - 115 mg/dL [facility] Calcium 8.9 8.4 - 10.2 mg/dL [facility] 06/06/2025 3:18 PM EST 06/06/2025 6:09 PM EST us Juliana Lyn MD LAB BLOOD ORDERABLES Final Resul t Performing Organization Address City/[facility]/ZIP Co de Phone Number [facility] [address] [place] [address] [phone] * (ABNORMAL) Hepatic Function Panel (05/09/2025 10:24 AM EDT) Bilirubin, Total 1.5(H) 0.0 - 1.0 mg/dL [facility] Bilirubin, Direct 0.5 0.0 - 0.5 mg/dL [facility] Aspartate Amino Transferase 25 5 - 37 U/L [facility] Alanine Aminotransferase 22 0 - 40 U/L [facility] Total Protein 6.1(L) 6.5 - 8.0 g/dL [facility] Albumin Level 4.1 3.5 - 5.0 g/dL [facility] Alkaline Phosphatase 91 39 - 117 U/L [facility] Blood Venous blood specimen / Unknown 05/09/2025 10:24 AM EDT 05/09/2025 2:18 PM EDT Juliana Lyn MD LAB BLOOD ORDERABLES Final Resul t Performing Organization Address [facility] Co de Phone Number [facility] [address] [place] [phone] * (ABNORMAL) Lipid Panel, Standard (05/09/2025 10:24 AM EDT) Triglycerides 75 <150 mg/dL [facility] Comment:Desirable Triglyceri de: less than 150 mg/dLBorderline High Triglyceride 150-199 mg/dLHigh Triglyceride: 200-499 mg/dLVery High Triglyceride: greater than or equal to 5OO mg/dL Cholesterol 115 <200 mg/dL [facility] Comment:Desirable Cholestero l: less than 200 mg/dLBorderline High Cholesterol: 200-239 mg/dLHigh Cholesterol: greater than 239 mg/dL LDL Cholesterol Calculated 62 <100 mg/dL [facility] Comment:Desirable LDL: less than 100 mg/dLNear Optimal/Above Optimal LDL: 110- 129 mg/dLBorderline High LDL: 130-159 mg/dLHigh LDL: 160-189 mg/dLVery High LDL: greater than or equal to 190 mg/dL HDL Cholesterol 38(L) >40 mg/dL [facility] Comment:Desirable HDL: great er than 40 mg/dL Note: This HDL assay may give artificially low results in patients with liver disease. Blood Venous blood specimen / Unknown 05/09/2025 10:24 AM EDT 05/09/2025 2:18 PM EDT us Juliana Lyn MD LAB BLOOD ORDERABLES Final Resul t [facility] [address] [place] [address] [phone] from Last 3 Months Insurance [place] [address] [place] [id number] [facility] STAND[facility] Care Teams Staff Assistant Relationship Specialty Start Date End Date Claire Sellers MD [address] [place] [phone] PCP - General Family Medicine 05/31/25
--- OUTSIDE RECORDS SUMMARY | 2025-07-20 16:10 | XMS_ITS | Encounter Summary ---
Author Organization [id number] [facility] Address [address] [place] [address] Care Team Providers Care Support Assistant Name Role Phone Juliana Lyn MD Primary Care Provider [phone] Claire Sellers MD Primary Care Provider [phone] Encounter Details Date Type Department Care Team (Latest Contact Info) Description 02/11/2022 Abstract [facility] CONVERSIONS Dental, Provider, DDS Social [...] Description 08/10/2025 11:15 AM EST Office Visit [facility] PEDS [address] [place] [address] Claire Sellers MD [address] [place] [address] documented as of this encounter Visit Diagnoses Not on filedocumented in this encounter Care Teams Support Assistant Relationship Specialty Start Date End Date Juliana Lyn MD [address] [place] [address] PCP - General Family Medicine 08/02/18 05/30/25 Claire Sellers MD [address] [place] [address] PCP - General Family Medicine 05/31/25 documented as of this encounter
--- OUTSIDE RECORDS SUMMARY | 2025-07-20 16:10 | XMS_ITS | Encounter Summary ---
Author Organization [employer] Address [address] [facility] 7 [place] [address] Care Team Providers Care Cabin Furnishings Installer Name Role Phone Claire Sellers MD Primary Care Provider [phone] Encounter Details Date Type Department Care Team (Latest Contact Info) Description 07/06/2025 Results Follow-Up [facility] [address] [place] [address] Claire Sellers MD [address] [place] [address] Basic Metabolic Panel, Uric acid, CBC auto [...] Description 08/10/2025 11:15 AM EST Office Visit [facility] P[facility] [address] [place] [address] Claire Sellers MD [address] [place] [address] documented as of this encounter Visit Diagnoses Not on filedocumented in this encounter Additional Health Concerns Assessment Noted Time PHQ-9 Depression Total Score: 3 05/09/20 25 9:48 AM EDT documented as of this encounter Care Teams Cabin Furnishings Installer Relationship Specialty Start Date End Date Claire Sellers MD [address] [place] [address] PCP - General Family Medicine 05/31/25 documented as of this encounter
--- OUTSIDE RECORDS SUMMARY | 2025-07-20 16:10 | XMS_ITS | Encounter Summary ---
Author Organization [employer] Address [address] [place] [address] 7 [place] [address] Care Team Providers Care Shirt Sewer Name Role Phone Juliana Lyn MD Primary Care Provider [phone] Claire Sellers MD Primary Care Provider [phone] Reason for Visit * Reason Onset Date Comments Hospital Follow-up 09/22/2023 Encounter Details Date Type Department Care Team ([facility] st Contact Info) Description 09/22/2023 Telephone [facility] [address] [place] [address] Juliana Lyn MD [address] [place] [address] Hospital Follow-up Social History Tobacco Use Types [...] is your housing situation today? I have betrha pepe 06/22/[address] you [...] message above. Please contact for scheduling at [phone] * Telephone Encounter - Sriram Perez - 09/22/2023 2:24 PM EST Tc from pt requesting a F appt. 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 Please contact pt @ [phone] documented in this encounter Plan of Treatment Upcoming Encounters Date Type Department Care Team ([facility] st Contact Info) Description 08/10/2025 11:15 AM EST Office Visit [facility] [address] [place], [place] [phone] Claire Sellers MD [address] [place] [address] documented as of this encounter Visit Diagnoses Not on filedocumented in this encounter Additional Health Concerns Assessment Noted Time PHQ-9 Depression Total Score: 0 07/02/20 23 10:54 AM EST documented as of this encounter Care Teams Shirt Sewer Relationship Specialty Start Date End Date Juliana Lyn MD [address] [place] [id number] PCP - General Family Medicine 08/02/18 05/30/25 Claire Sellers MD [address] [place] [address] PCP - General Family Medicine 05/31/25 documented as of this encounter
--- OUTSIDE RECORDS SUMMARY | 2025-07-20 16:10 | XMS_ITS | Encounter Summary ---
Author Organization [employer] Address [address] [place] [address] 7 [place] [address] Care Team Providers Care Moss Bleacher Name Role Phone uJliana Lyn MD Primary Care Provider [phone] Claire Sellers MD Primary Care Provider [phone] Reason for Visit * Reason Onset Date Comments Nurse Triage 09/29/2023 Encounter Details Date Type Department Care Team ([facility] st Contact Info) Description 09/29/[address] [facility] [address] [place] [address] Juliana Lyn MD [address] [place] [address] Nurse Triage Social History Tobacco Use Types [...] the past 12 months, has t he [employer], gas, oil or water [employer] threatened to shut off services in your [...] 09/29/2023 10:27 AM EST Triage call with [employer] [employer]ter ID [id number] Pt gives permission for son in [place] to speak for Pt. Pt is having [...] tylenol / motrin for discomfort. [facility] 09/30/23 @ 220p. Insurance is [...] [facility] [address] [place] [address] Claire Sellers MD [address] [place] [address] documented as of this encounter Visit Diagnoses Not on filedocumented in this encounter Additional Health Concerns Assessment Noted Time PHQ-9 Depression Total Score: 0 07/02/20 23 10:54 AM EST documented as of this encounter Care Teams Moss Bleacher Relationship Specialty Start Date End Date Juliana Lyn MD [address] [place] [address] PCP - General Family Medicine 08/02/18 05/30/25 Claire Sellers MD [address] [place] [address] PCP - General Family Medicine 05/31/25 documented as of this encounter
--- OUTSIDE RECORDS SUMMARY | 2025-07-20 16:10 | XMS_ITS | Encounter Summary ---
Author Organization [employer] [facility] Address [address] [place] [address] Care Team Providers Care Histologist Technologist Name Role Phone Juliana Lyn MD Primary Care Provider [phone] Claire Sellers MD Primary Care Provider [phone] Reason for Visit * Reason Comments Med Refill Encounter Details Date Type Department Care Team (Late Contact Info) Description 01/12/2023 Refill [facility] [address] [place] [address] Juliana Lyn MD [address] [place], [place] [phone] Hypercholesteremia; Gout, unspecified cause, unspecified chronicity, unspecified [...] 11:15 AM EST Office Visit [facility] [address] [place], [place] [phone] Claire Sellers MD [address] [place], [place] [phone] documented as of this encounter Visit Diagnoses Diagnosis Hypercholesteremia Pure hypercholesterolemia Gout, unspecified cause, unspecified chronicity, unspecified site documented in this encounter Care Teams Histologist Technologist Relationship Specialty Start Date End Date Juliana Lyn MD [address] [place] [id number] PCP - General Family Medicine 08/02/18 05/30/25 Claire Sellers MD [address] [place] [id number] PCP - General Family Medicine 05/31/25 documented as of this encounter
== END 2025-07-20 15:08 | disposition home or self-care (01) ==
LOC: HO.HUSH 14:49
PROVIDERS: PCP Student in an Organized Health Care Education/Training Program; Visit Provider Urology
DX: N40.1 Benign prostatic hyperplasia with lower urinary tract symptoms (principal); N13.8 Other obstructive and reflux uropathy; N35.919 Unspecified urethral stricture, male, unspecified site; R97.20 Elevated prostate specific antigen [PSA]
CPT/HCPCS: 99214

== ENCOUNTER → 2025-07-20 14:48 | Outpatient (BNVA) | payer MEDICARE, MEDICAID, SELFPAY | PROVIDERS: PCP Student in an Organized Health Care Education/Training Program; Visit Provider Urology | DX: N40.1 Benign prostatic hyperplasia with lower urinary tract symptoms (principal); N13.8 Other obstructive and reflux uropathy; R35.1 Nocturia; N35.919 Unspecified urethral stricture, male, unspecified site; R97.20 Elevated prostate specific antigen [PSA]; Z79.01 Long term (current) use of anticoagulants | CPT/HCPCS: 99212 ==

== ENCOUNTER 2025-07-25 14:07 | Outpatient (AMB) | payer MEDICARE, MEDICAID, SELFPAY ==
--- NOTE | 2025-07-25 14:09 | A.OFFVIS_ITS ---
Vital Signs 07/25/25 14:13 Height 5 ft 7 in Weight 228 lb 13.437 oz BMI 35.8 BP 122/60 Blood Pressure Location Rt brachial Position Sitting Pulse 75 Pulse Source Pulse Oximeter Intake Visit Reasons: 6 mth f/up r/s 06-25-25 Junk Removal Specialist Required: Yes Junk Removal Specialist Services: Junk Removal Specialist Offered & Declined Junk Removal Specialist Name: daughter Accompanied by: Daughter Allergies bell (CHERRIES) Allergy (Unknown, Verified 07/20/25 14:56) RASH phenytoin (From DILANTIN) Allergy (Unknown, Verified 07/20/25 14:56) HIVES strawberry (STRAWBERRY) Allergy (Unknown, Verified 07/20/25 14:56) RASH Medication List - Last Reconciled 07/25/25 by Musa Araujo MD allopurinol 100 mg PO BID amlodipine 10 mg PO DAILY apixaban (Eliquis) 5 mg PO BID atorvastatin (Lipitor) 40 mg PO DAILY chlorthalidone 25 mg PO DAILY cyanocobalamin (vitamin B-12) 1,000 mcg PO DAILY finasteride 5 mg PO DAILY 90 days levetiracetam 750 mg PO BID loratadine 10 mg PO DAILY metoprolol succinate ER 100 mg PO DAILY tamsulosin (Flomax) 0.4 mg PO DAILY 90 days HPI Comments Details: Carina returns for follow-up regarding coronary disease. In 2016, had stroke/NSTEMI in setting of elective knee surgery. He also has chronic atrial fibrillation on appropriate anticoagulation. He is here with his family. Overall, just about the same as before. Minimal activity. According to family, he barely walks and even if it does, is just for a few minutes at a time. In the past, there was a question of shortness of breath/wheezing. We had tried diuretics but apparently that may no change. He has spontaneously better now in that regard. No other concerns like chest pains or bleeding issues related to anticoagulation. Since last seen, no new concerns. He is essentially in the same as before. He is in a wheelchair with family. [facility] Medical History Ischemic stroke Essential hypertension Atherosclerotic cardiovascular disease Non-rheumatic aortic regurgitation Gout Surgical History History of total right knee replacement Family History Father No problems noted. Mother No problems noted. Social History Alcohol intake: never Patient Tobacco Use Status: Never used Tobacco Review of Systems Const Denies chills, Denies fatigue, Denies fever(s), Denies frequent falls, Denies weakness, Denies weight gain and Denies weight loss ENT Denies dizziness Card Denies chest pain, Denies leg edema, Denies lightheadedness, Denies palpitations, Denies dyspnea and Denies dyspnea on exertion Resp Denies cough, Denies dyspnea and Denies dyspnea on exertion GI Denies hematochezia Musc Denies abnormal gait, Denies muscle weakness, Denies numbness, Denies radiating pain into limb and Denies tingling Neuro Denies abnormal gait, Denies dizziness, Denies frequent falls, Denies numbness, Denies tingling and Denies weakness Endo Denies fatigue and Denies palpitations Physical Exam Vital Signs: Last Vital Signs Pulse 75 07/25/25 14:13 BP 122/60 07/25/25 14:13 BMI result Body Mass Index 35.8 Const General: comfortable and no acute distress Orientation/consciousness: patient oriented x3 HEENT Other: Unremarkable Head: Yes normal to inspection Neck Neck: Yes normal visual inspection Chest Chest palpation & inspection: normal inspection of the chest Resp Auscultation: clear to auscultation bilaterally Cardio Palpation: normal PMI Heart sounds: S1 normal heart sound present, S2 normal heart sound present, no gallops, no murmurs and no rubs GI Palpation (GI): Soft to palpation Back/Spine/Pelvis Other: unremarkable Skin General skin exam: no rashes or lesions noted Neuro General: patient oriented x3 Extrem Other: 1+ swelling b/l. General: Yes normal to inspection Psych Mental Status: mental status grossly normal Assessment & Plan Assessment & Plan (1) Atrial fibrillation by electrocardiogram: Code(s): I48.91 - Unspecified atrial fibrillation Category: Medical Plan: Continue beta-blockers and anticoagulation. (2) Atherosclerotic cardiovascular disease: Code(s): I25.10 - Atherosclerotic heart disease of [place] coronary artery without angina pectoris Category: Medical Plan: Presumed coronary disease, but no angina or other concerning symptoms. Remains on beta-blockers/statins. Last LDL 48 mg/dL. Triglycerides were within normal limits before but more recently elevated. (3) Non-rheumatic aortic regurgitation: Code(s): I35.1 - Nonrheumatic aortic (valve) insufficiency Category: Medical Plan: Mild aortic regurgitation on the echocardiogram. Not clinically significant. (4) Essential hypertension: Code(s): I10 - Essential (primary) hypertension Category: Medical Plan: Stable. No changes. (5) Shortness of breath: Code(s): R06.02 - Shortness of breath Category: Medical Plan: In the past, exam had shown some wheezing. Thought to be either asthma versus diastolic heart failure. He had a chest CT scan from [facility], description of atelectasis versus scar in right middle lobe/both lower lobes. Tried low-dose Lasix but apparently that made no difference. He has spontaneously improved per family. No obvious wheezing noted today. Continue to follow clinically. Per family, he has been put on chlorthalidone through PCP. Plan Patient was informed and verbally consented to the use of an ambient scribe for clinic note documentation during this visit. Coding Level of Care Code Est Pt Level 4 (19054) Add On Problem Visit Only Diagnoses Atrial fibrillation by electrocardiogram I48.91 Atherosclerotic cardiovascular disease I25.10 Non-rheumatic aortic regurgitation I35.1 Essential hypertension I10 Shortness of breath R06.02
[2025-07-25 14:13] VITALS: BP 122/60; PULSE 75; BMI 35.8
== END 2025-07-25 14:24 | disposition home or self-care (01) ==
LOC: HO.HCS 14:08
PROVIDERS: PCP Student in an Organized Health Care Education/Training Program; Visit Provider Internal Medicine
DX: I48.91 Unspecified atrial fibrillation (principal); I25.10 Atherosclerotic heart disease of native coronary artery without angina pectoris; I35.1 Nonrheumatic aortic (valve) insufficiency; I10 Essential (primary) hypertension; R06.02 Shortness of breath
CPT/HCPCS: 99214; G2211

== ENCOUNTER → 2025-07-25 14:07 | Outpatient (BNVA) | payer MEDICARE, MEDICAID, SELFPAY | PROVIDERS: PCP Student in an Organized Health Care Education/Training Program; Visit Provider Internal Medicine | DX: I48.19 Other persistent atrial fibrillation (principal); I10 Essential (primary) hypertension; I35.1 Nonrheumatic aortic (valve) insufficiency; R06.02 Shortness of breath; Z79.01 Long term (current) use of anticoagulants | CPT/HCPCS: 99212 ==